=== PATIENT | male | born 1955 | race Caucasian/White ===

== ENCOUNTER → 2023-06-14 11:09 | Outpatient (REF) | payer BC, SELFPAY | LOC: HWRAD 11:09 | PROVIDERS: ATTENDING PHYSICIAN Internal Medicine | DX: M79.89 Other specified soft tissue disorders (principal) | CPT/HCPCS: 73140 ==

== ENCOUNTER → 2024-07-29 10:48 | Outpatient (REF) | payer BC, SELFPAY | LOC: HWRAD 10:48 | PROVIDERS: ATTENDING PHYSICIAN Student in an Organized Health Care Education/Training Program; FAMILY PHYSICIAN Family Medicine | DX: M25.512 Pain in left shoulder (principal) | CPT/HCPCS: 72125 ==

== ENCOUNTER → 2024-08-04 08:42 | Outpatient (REF) | payer BC, SELFPAY | LOC: RAD 08:42 | PROVIDERS: ATTENDING PHYSICIAN Family Medicine | DX: I73.9 Peripheral vascular disease, unspecified (principal) | CPT/HCPCS: 93922; 93925 ==

== ENCOUNTER 2024-08-28 11:54 | Inpatient (IN) | payer BC, SELFPAY ==
[2024-08-28] VITALS (9 sets, daily range): BP systolic 113–158; BP diastolic 72–110; BMI 27.0
[2024-08-28] MEDS: DUONEB 3 ML INH ×4 (08:22→19:20)
--- NOTE | 2024-08-28 08:23 | ED.GENMED ---
History of Present Illness
General
Chief Complaint: Breathing Problem
Source: patient
Exam Limitations: none
Time Seen by Provider: 08/28/24 08:11
Nursing documentation reviewed up to this point in time: agreed with
History of Present Illness
History of Present Illness:
69-year-old male with a history of hypertension, hyperlipidemia, PAD, COPD former smoker presents for about 1 week of increased cough, decreased appetite and wheezing with SOB
he has an albuterol inhaler and treligy and has been using them but not getting relief
he has a neb machine and started using that, 3 times thepast 24 hours
he was becoming increasingly SOB so he decided to come in
not aware of any fever
no chest pain, abdomial pain, vomiting, dirarhea, sore throat congestion.
he has had trouble laying flat
he has some swellin gin his legs that is new
Past History
Past History
ED Past Medical History: HTN and Other (Aneurysm)
ED Past Surgical History: None
Social History
Tobacco: Non-smoker
Alcohol: None
Family History
Family History: Other (Noncontributory)
Review of Systems
Review of Systems
Allergies reviewed?: Yes
All Other Systems: Not applicable
Phy Exam
Physical Exam
Physical Exam:
GENERAL: Alert , tachypneic
EYE: pupils equal and reactive
NECK: Supple
ENT: o/p clr, mmm.
CARDIAC: Tachycardic, no murmur
LUNGS: Frequent cough, inspiratory and expiratory wheezing, rhonchi throughout,
ABDOMEN: Soft, without focal tenderness, no r/g, no cvat, normal bowel sounds
NEUROLOGICAL: Alert and oriented, no focal neuro deficits
SKIN: Warm and dry, skin intact.
MUSCULOSKELETAL: Mild nonpitting symmetric lower extremity edema in the pretibial region edema, well perfused. neg fidelia's sign
PSYCH: Normal and appropriate interaction.
Scores
Heart Failure Risk
Heart Failure Risk Score: Not Applicable
Course
Orders/Labs/Results
Orders:
Orders
08/28/24 Breakfast
Regular
At Your Request: Limited Participation
08/28/24 08:16
Electrocardiogram (*1) Urgent
Reason for Study: Shortness of Breath
EKG- Treatment ONCE
Portable Chest Xray [CR Chest Portable - 1 View] Urgent
Comment:
Reason For Exam: sob
Reason Study Needs to be Portable: Patient Unstable
08/28/24 08:19
Ipratropium/Albuterol Sulfate [Duoneb] 6 ml .ROUTE .STK-MED ONE
08/28/24 08:21
Ipratropium/Albuterol Sulfate [Duoneb] 3 ml INH R NOW STA
08/28/24 08:22
Complete Blood Count/With Diff Urgent
Comprehensive Metabolic Panel Urgent
NT-proBNP Urgent
Troponin I Urgent
08/28/24 08:29
COVID-19 Antigen Urgent
Source: Nasal Swab
Influenza A+B Rapid Molecular Urgent
DIAMOND Source: Nasal Swab
Specimen Description:
08/28/24 08:38
Lactic Acid Urgent
08/28/24 08:46
Blood Culture Q30M
DIAMOND Source: Blood/Venous
Specimen Description:
Piperacillin/Tazo 4.5 Gram [Zosyn] 4.5 gram in 100 ml IV NOW
08/28/24 08:48
Dexamethasone Sod Phosphate [Decadron] 6 mg IV NOW STA
08/28/24 08:51
Dexamethasone Sod Phosphate [Decadron] 10 mg IV NOW STA
08/28/24 08:55
Blood Culture Q30M
DIAMOND Source: Blood/Venous
Specimen Description:
08/28/24 11:38
CT Chest PE Study Urgent
Comment:
Reason For Exam: tachy acute hypoxia
08/28/24 11:39
Admit/Transfer Patient As Directed
Co-Sign Provider:
Level of Care: Inpatient admission
Assign to:: IMU- Intermediate Care
Physician / Group: Jie Camp
Diagnosis: Multifocal Pneumonia
Reason for Hospitalization: Multifocal Pneumonia
Expected length of stay greater than two midnights?: Yes
ELOS- Estimated Length of Stay in days: 2
I certify the patient meets the requirements for IP care: Yes
Furosemide [Lasix] 40 mg IV ONCE ONE
08/28/24 11:40
PRN Pain Medication Management As Directed
May give lesser potent ordered pain med per pt: Yes
preference::
Protocol:: Medication orders for pain may be administered in a
manner that supports deferring to patient preference
when the pt is:
- Requesting an ordered lesser potent pain medication.
Least to most potent pain medications are defined
as: acetaminophen < NSAID < tramadol < opioids
(morphine, oxycodone, hydromorphone).
- Requesting a lesser dose of the same medication IF
ORDERED.
- Requesting a less intrusive route of administration
if both routes are prescribed by the provider (PO <
IV).
08/28/24 11:44
Code Status As Directed
Resuscitation Status: Full Code
08/28/24 13:01
Acetaminophen [Tylenol] 1,000 mg PO Q6HPRN PRN
Azithromycin 500 mg/250 ml [Zithromax Infusion] 500 mg in 250 ml IV NOW
Guaifenesin/Dextromethorphan [Robitussin Dm] 5 ml PO Q4HPRN PRN
Ipratropium/Albuterol Sulfate [Duoneb] 3 ml INH R Q4HPRN PRN
Ipratropium/Albuterol Sulfate [Duoneb] 3 ml INH R QID
08/28/24 13:01
Echo 2D MMode Color/Doppler Routine
Reason for Study: SOB, orthopnea, BNP elevation
Activity As Directed
Activity Level: With Assistance
Intake/ Output As Directed
Frequency: Per unit guidelines
Vital Signs As Directed
Frequency: Per unit guidelines
Weight As Directed
Frequency: Daily
Copd Education [RESP] Routine
DX Deep Vein Thrombosis Video Routine
08/28/24 14:00
CefTRIAXone [Rocephin] 1,000 mg IV Q24H
08/28/24 18:00
Dexamethasone Sod Phosphate [Decadron] 4 mg IV Q8H
Enoxaparin Sodium [Lovenox] 40 mg SC QPM
Methocarbamol 750 mg PO QID
08/28/24 20:00
Guaifenesin [Mucinex] 600 mg PO Q12
08/28/24 22:00
Atorvastatin [Lipitor] 10 mg PO HS
08/29/24 04:04
Basic Metabolic Panel IN AM
Complete Blood Count/With Diff IN AM
08/29/24 08:00
Aspirin Low Dose EC [Aspir Low (Enteric Coated)] 81 mg PO DAILY
Cholecalciferol (Vitamin D3) [VITAMIN D3 (cholecalciferol)] 25 mcg PO DAILY
Lisinopril [Zestril] 20 mg PO DAILY
08/30/24 06:00
Complete Blood Count/With Diff IN AM
08/31/24 06:00
Complete Blood Count/With Diff IN AM
09/01/24 06:00
Complete Blood Count/With Diff IN AM
09/02/24 06:00
Complete Blood Count/With Diff IN AM
09/03/24 06:00
Complete Blood Count/With Diff IN AM
09/04/24 06:00
Complete Blood Count/With Diff IN AM
Abnormal Lab Results
08/28/24
08:22
WBC 23.0 H 10^3/uL
(4.8-10.8)
RBC 4.36 L 10^6/uL
(4.70-6.10)
Hct 38.8 L %
(39.0-52.0)
Plt Count 495 H 10^3/uL
(130-400)
Abs Immat Gran (auto) 0.2 H 10^3/uL
(0-0.05)
Absolute Neuts (auto) 19.9 H 10^3/uL
(1.4-6.5)
Absolute Monos (auto) 1.6 H 10^3/uL
(0.1-0.6)
Immature Gran % 1.0 H %
(0-0.5)
Neutrophils % 86.5 H %
(42.2-75.2)
Lymphocytes % 5.3 L %
(20.5-51.1)
Glucose 120 H mg/dl
(70-99)
08/28/24 08:22
08/28/24 08:22
Vital Signs
Initial and Last Documented VS:
Initial Vital Signs
Temp Pulse Resp BP Pulse Ox
36.8 C 118 22 158/110 86
08/28/24 08:07 08/28/24 08:07 08/28/24 08:07 08/28/24 08:07 08/28/24 08:07
Last Documented Vital Signs
Temp Pulse Resp BP Pulse Ox
36.6 C 83 23 127/85 99
08/29/24 08:08 08/29/24 09:48 08/29/24 07:24 08/29/24 09:48 08/29/24 07:24
MDM/Problems Addressed
Differential Diagnosis Includes:
COPD, pneumonia, pulmonary edema
MDM/Problems Addressed:
69-year-old male former smoker, history of COPD, hypertension and hyperlipidemia presents for 1 week of increased shortness of breath with cough, decreased appetite, no known fever. Patient does have a little bit of swelling in his legs which seems
new to him. He has not had any chest discomfort but feels extremely short of breath with any slight activity just from getting from his bed to the bathroom. He has not been able to lay flat. He has been trying nebulizer treatments with minimal
relief. On arrival he was hypoxic to 86% on room air, wheezing and coughing. Patient can speak in nearly full sentences but is tachypneic, wheezing and has rhonchi throughout. The edema in his legs is minimal and nonpitting
His chest x-ray independently reviewed by me favors multifocal pneumonia versus pulmonary edema. I spoke with the radiologist who agreed. Patient has a leukocytosis of 23,000 with a left shift, borderline temperature of 99.5. Lactate and cultures
were sent. At this point after 2 DuoNebs he is still only saturating 91% on 5 L and tachypneic but he is moving better air and less wheezy.
He may require IMU
Will cover him with Zosyn and give a smaller dose of steroids for his COPD/wheezing
*Critical Care Note
Total Time (30-74mins, 75-104mins- exclusive of procedures): Not Applicable
ED Attending Note
-
Portions of this chart may have been created with voice recognition software.� Occasional wrong word or��sound alike� substitutions may have occurred due to the inherent limitations of voice recognition software.
Discharge Plan
Departure
Patient Disposition: Admit
Date of Disposition: 08/28/24
Time of Disposition: 08:51
Admit to: IMU
Presentation/result/management discussed w/ accepting MD/DO: Hospitalist
Condition: Fair
Covid-19: Negative COVID-19
Discharge Problem:
Multifocal pneumonia, Hypoxia
Interventions
Interventions:
*Risk Screen - Suicide Last Done: 08/28/24 08:07
*General Assessment Last Done: 08/28/24 08:28
*Neglect/Abuse Screening Last Done: 08/28/24 08:07
*ED- Fall Risk Assessment Last Done: 08/28/24 08:28
*ED COVID-19 Vaccine History Last Done: 08/28/24 08:28
*Nursing Disposition Last Done: 08/28/24 13:12
ED- Cardiac Assessment Last Done: 08/28/24 08:25
ED- Pulmonary Assessment Last Done: 08/28/24 12:18
Discharge Date and Time
Discharge Date/Time: 08/28/24 13:13
[2024-08-28 08:29] LABS: % Basophils 0.4 % (0-2); % Eosinophils 0.1 % (0-6); % Lymphocytes 5.3 % (20.5-51.1); % Monocytes 6.7 % (1.7-9.3); % Neutrophils 86.5 % (42.2-75.2); Absolute Basophils 0.1 10^3/uL (0-0.2); Absolute Immature Granulocytes 0.2 10^3/uL (0-0.05); Absolute Lymphocytes 1.2 10^3/uL (1.2-3.4); Absolute Monocytes 1.6 10^3/uL (0.1-0.6); Absolute Neutrophils 19.9 10^3/uL (1.4-6.5); Hematocrit 38.8 % (39.0-52.0); Hemoglobin 13.1 g/dL (13.0-18.0); Mean Corp Hgb Conc. 33.8 g/dL (33.0-37.0); Mean Platelet Volume 8.8 fL (7.4-10.4); Nucleated Red Blood Cells % 0 % (-); Platelet Count 495 10^3/uL (130-400); Red Blood Cell Count 4.36 10^6/uL (4.70-6.10)
[2024-08-28 08:49] LABS: ALT (SGPT) 46 U/L (0-50); AST (SGOT) 41 U/L (17-59); Albumin 3.6 g/dl (3.5-5.0); Alkaline Phosphatase 119 U/L (38-126); Blood Urea Nitrogen 20 mg/dl (9-20); Calcium 9.2 mg/dl (8.4-10.2); Carbon Dioxide 28 mmol/L (22-30); Chloride 101 mmol/L (98-107); Glucose 120 mg/dl (70-99); Potassium 4.7 mmol/L (3.5-5.1); Sodium 139 mmol/L (135-145); Total Bilirubin 0.8 mg/dl (0.2-1.3); Total Protein 7.6 g/dl (6.3-8.2); eGFR > 60.00
--- NOTE | 2024-08-28 08:50 | EDRN ---
Report received at bedside, patient is very short of breath, informed SARAH Webber taking care of patient that patients o2 is turned up to 6L NC and only O2 sats 87% and is very tachypneic, tiger texted respiratory to place patient on high flow
[2024-08-28] MEDS: ZOSYN 100 IV (08:57)
[2024-08-28 08:58] LABS: NT-proBNP 1940 pg/ml; Troponin I 0.029 ng/ml
[2024-08-28] MEDS: DECADRON 10 MG IV (08:58)
--- NOTE | 2024-08-28 09:10 | HPS.HSE ---
Family Physician
-
Family Physician: India Magallanes
Chief Complaint
-
shortness of breath
History of Present Illness
69M HTN, HLD, PAD, COPD former smoker p/w 1 week of increased cough, decreased appetite, wheezing, SOB, exertional dyspnea, orthopnea and leg swelling. Denies fever chills calf tenderness. Hypoxic to 86% on room air during ED evaluation. Patient
required High Flow to maintain adequate saturation 90s. Denied chest pain fever chills nausea vomiting diarrhea constipation. Endorses having a roommate who smokes. AOx3 conversant coherent. Patient afebrile but sinus tachy with wbc 23. No
significant Lactic acidosis or hypotension. CXR suggestive multifocal pneumonia. BNP 1940, crackles auscultated on RLL lung field. Denies weight gain.
Medical History
Past Medical History
Past Medical History: Reports Other (as above)
Past Surgical History: Reports Other (as above)
Social History
Tobacco: Former Smoker
Alcohol: None
Drug: None
Personal: Single
Living: With Roomate
Family History
Family History: Not pertinent (reviewed)
Allergies / Home Medications
Allergies reflects when Allergies were last updated in [employer].
Home Medications with original date entered in [employer]
Allergy/Medication List:
Allergies
Allergy/AdvReac Type Severity Reaction Status Date / Time
No Known Allergies Allergy Verified 08/28/24 08:09
Home Medications
atorvastatin 10 mg tablet 10 mg PO HS High cholesterol 08/28/20
carisoprodol 350 mg tablet 350 mg PO TID Muscle spasms 08/28/20
lisinopril 20 mg tablet 20 mg PO DAILY Blood pressure 08/28/20
acetaminophen 650 mg tablet,extended release (Tylenol Arthritis Pain) 1,300 mg PO [id number] PRN mild pain 08/28/24
albuterol 90 mcg-budesonide 80 mcg/actuation HFA aerosol inhaler (Airsupra) 2 inh inhalation R Q6HPRN PRN sob 08/28/24
aspirin 81 mg tablet,delayed release 81 mg PO DAILY 08/28/24
cholecalciferol (vitamin D3) 25 mcg (1,000 unit) tablet (Vitamin D3) 25 mcg PO DAILY 08/28/24
tiotropium bromide 2.5 mcg/actuation mist for inhalation (Spiriva Respimat) 2 inh inhalation R BID 08/28/24
Review of Systems
-
A 12 point ROS was completed and negative except as noted: Yes
Constitutional: Reports Other (as below)
Physical Exam
Vital Signs
Vital Signs
Temp Pulse Resp BP Pulse Ox
99.5 F 114 31 158/110 91
08/28/24 08:15 08/28/24 08:15 08/28/24 08:15 08/28/24 08:07 08/28/24 08:40
Physical Exam
General: Other (as below)
Laboratory Results
-
08/28/24 08:22
08/28/24 08:22
Laboratory Results
Total Bilirubin 0.8 mg/dl (0.2-1.3) 08/28/24 08:22
AST 41 U/L (17-59) 08/28/24 08:22
ALT 46 U/L (0-50) 08/28/24 08:22
Alkaline Phosphatase 119 U/L (38-126) 08/28/24 08:22
Troponin I 0.029 ng/ml 08/28/24 08:22
Impression/Plan
-
ROS
General: Denies fever chills night sweats unexpected weight loss reports appetite loss
Neuro: Denies seizure shaking loss of consciousness dizziness vertigo
Psych: denies depression hallucinations confusion manic episodes
Endocrine: Denies polyuria polydipsia polyphagia heat/cold intolerance
HEENT: Denies blindness visual disturbances epistaxis
Pulmonary: Reports productive cough exertional dyspnea orthopnea denies hemoptysis
Cardiovascular: denies chest pain palpitations reports leg swelling leg swelling
Hematology: denies signs symptoms of anemia easy bruising/bleeding
Gastrointestinal: denies nausea vomiting diarrhea constipation hematemesis hematochezia melena
Genito-Urinary: denies retention incontinence dysuria
Musculoskeletal: denies joint pain weakness
Dermatology: denies rash laceration bruising
Physical Exam
General: No pallor, cyanosis, or jaundice.
HEENT: Throat clear. PERRLA Normocephalic atraumatic
NECK: Supple. No carotid Bruits
RESPIRATORY: Crackles right lower lung field on high flow nonlabored respiration
CVS: S1, S2 sinus tachycardia. No murmur, rub or gallop.
ABDOMEN: Soft, non-tender. No distension. BS+/normal.
EXTREMITIES: No peripheral cyanosis, +1 edema lower extremities bilateral. No significant Calf tenderness
ADJUNCT FACULTY: AOx3 conversant coherent
IMPRESSION:
69M HTN, HLD, PAD, COPD former smoker p/w 1 week of increased cough, decreased appetite, wheezing, SOB, exertional dyspnea, orthopnea and leg swelling. Denies fever chills calf tenderness. Hypoxic to 86% on room air during ED evaluation. Patient
required High Flow to maintain adequate saturation 90s. Denied chest pain fever chills nausea vomiting diarrhea constipation. Endorses having a roommate who smokes. AOx3 conversant coherent. Patient afebrile but sinus tachy with wbc 23. No
significant Lactic acidosis or hypotension. CXR suggestive multifocal pneumonia. BNP 1940, crackles auscultated on RLL lung field. Denies weight gain
PLAN:
#Sepsis secondary to multifocal pneumonia
#Acute hypoxic respiratory failure
#Possible heart failure
#COPD exacerbation
IMU admit
Pulm eval
Received empiric and Zosyn in ED, will continue with antibiotics ceftriaxone azithromycin
Follow blood cultures, check sputum culture
trend wbc
High flow as necessary to maintain saturation 92%, wean as tolerated
IV decadron 4mg Q8H
Duoneb R QID and prn
mucinex, prn robitussin DM
incentive spirometer, acapella
Check CT chest PE study
Check ECHO
once IV Lasix 40 mg
daily weight I/O
#HTN
cont home lisinopril with holding parameters
#HLD
cont home statin
#PAD
pain control
cont patient's own med carisoprodol
dvt ppx Lovenox
gi ppx protonix
Full Code
I spent a total of 80 minutes with the patient or on the floor. More than 50% of this time involved counseling and coordination of care.
[2024-08-28 09:11] LABS: Lactic Acid 1.4 mmol/L (0.7-2.0)
[2024-08-28 09:25] LABS: COVID-19 Antigen Negative (Negative)
--- NOTE | 2024-08-28 09:29 | RESPNOTE ---
placed on high flow 100% @50LPM. SpO2 improved from 87-88% to 93-94%. mild to moderate dyspnea with exertion. BS diminished throughout, per RN just received back -to-back neb treatments. patient tolerating HFNC, will wean O2 as able.
--- NOTE | 2024-08-28 10:18 | EDRN ---
Patient is sleeping at this time, VSS will continue to monitor, waiting on admission at this time.
--- NOTE | 2024-08-28 11:08 | EDRN ---
Patient needing the bathroom, gave patient urinal so he can stay on his o2, no further needs at this time, call rothman in reach
--- NOTE | 2024-08-28 11:30 | EDRN ---
Hospitalist at bedside working on admission orders
[2024-08-28] MEDS: LASIX 40 MG IV (12:37)
[2024-08-28] MEDS: STERILE WATER FOR INJECTION 10 ML IV (14:27)
[2024-08-28] MEDS: ROCEPHIN 1000 MG IV (14:27)
[2024-08-28] MEDS: ZITHROMAX INFUSION 250 IV (14:27)
--- NOTE | 2024-08-28 16:17 | CON.PUL ---
Addendum entered and electronically signed by Jason Meeks MD 08/28/24 19:08:
Was notified by respiratory that patient desaturates to 85% while sleeping, mouth breathing with high flow
Titrate oxygen up as able
May require Ventimask depending on clinical course but as long as arousable and without complaints, okay to tolerate saturation down to 85% while sleeping
Obtain ABG in AM on high flow
Original Note:
Consultation
Consultation Request
Date/Time Consultation Requested: 08/28
Date/Time Consultation Performed: 08/28
Reason for Consultation: Hypoxia, pneumonia
Medical History
-
History of Present Illness:
History obtained from the chart and from the patient. Patient is a 69-year-old male with history of COPD, pneumonia 10+ years ago, 120+ pack-year history of smoking quit 2006, presents with 1 week history of increased shortness of breath, chest
congestion, cough. He had seen a sofa inspector 10+ years ago and was told he had COPD. Despite given a diagnosis of 'severe' COPD, he is only on Spiriva and Airsupra as an outpatient. Upon arrival to [facility], afebrile, pulse 118,
breathing at 22, blood pressure 158/110, 86%. Per ED records, chest exam with significant wheezing and rhonchi. Patient was given nebulized therapy, Zosyn, steroids. Cultures obtained. White count noted to be 23. Chest x-ray suggested
pneumonia. CT chest was obtained. We are asked to comment on pulmonary process
Patient states he was getting short of breath just walking to the bathroom few days prior to admission. He denies any falls, syncope, chest pain, chest tightness, PND, orthopnea, lower extremity swelling. He denies any oxygen requirement in the
past.
.
PMH: History of COPD, history of pneumonia 2014, hypertension. History of fall
Past Medical History
Past Medical History: None (See above)
Past Surgical History: None (See above)
Social History
Tobacco: Former Smoker (125+ pack-year history of smoking quit 2006, was smoking 4 packs a day for 25 years at 1 point)
Alcohol: Occasional
Drug: None
Personal: Single
Living: With Roomate (Lives with a roommate which she helps as a caregiver)
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
Family History
Family History: Other (1 sister from leukemia, brother from COPD at age 58. He was a smoker. Both parents in an elderly age. No children)
Allergies / Home Medications
Allergies
Allergy/AdvReac Type Severity Reaction Status Date / Time
No Known Allergies Allergy Verified 08/28/24 08:09
Home Medications
�Medication �Instructions �Recorded �Confirmed �Last Taken �Type
atorvastatin 10 mg tablet 10 mg PO HS High cholesterol 08/28/20 08/28/24 08/27/24 History
carisoprodol 350 mg tablet 350 mg PO TID Muscle spasms 08/28/20 08/28/24 08/27/24 History
lisinopril 20 mg tablet 20 mg PO DAILY Blood pressure 08/28/20 08/28/24 08/27/24 History
acetaminophen 650 mg 1,300 mg PO [id number] PRN mild pain 08/28/24 08/28/24 08/28/24 History
tablet,extended release (Tylenol
Arthritis Pain)
albuterol 90 mcg-budesonide 80 2 inh inhalation R Q6HPRN PRN sob 08/28/24 08/28/24 08/28/24 History
mcg/actuation HFA aerosol inhaler
(Airsupra)
aspirin 81 mg tablet,delayed 81 mg PO DAILY 08/28/24 08/28/24 08/27/24 History
release
cholecalciferol (vitamin D3) 25 25 mcg PO DAILY 08/28/24 08/28/24 08/27/24 History
mcg (1,000 unit) tablet (Vitamin
D3)
tiotropium bromide 2.5 2 inh inhalation R BID 08/28/24 08/28/24 08/28/24 History
mcg/actuation mist for inhalation
(Spiriva Respimat)
Review of Systems
Vitals / Labs / Diagnostic Testing
Vital Signs
Temp Pulse Resp BP Pulse Ox
98.4 F 94 44 148/87 95
08/28/24 15:52 08/28/24 15:27 08/28/24 15:27 08/28/24 12:37 08/28/24 15:27
Lab Data
08/28/24 08:22
08/28/24 08:22
Microbiology
08/28/24 08:29 Nasal Swab Influenza Types A & B (ALKA) - Final
Negative for Influenza A & B, NAAT
Negative results must be combined with clinical observations
and patient history.
Nucleic Acid Amplification test (NAAT)performed on the
[employer] platform.
Diagnostic Testing:
Physical Exam
-
HEENT: Normocephalic and Anicteric
Cardiovascular: S1/S2, Regular Rhythm, Murmur (n) and Rub (n)
Respiratory: Wheeze (Scattered), Rales (Bibasilar), Rhonchi (Few) and Non-Labored Respirations
GI: Soft, Non Distended and Non Tender
Neurology: Awake, Alert, Oriented and No Motor Deficits (Able to sit up without assistance)
Skin: Good Color
General: Comfortable
Assessment
-
69-year-old male with history of COPD, pneumonia, 120+ pack-year history of smoking quit presents with 1 week of increased shortness of breath, chest congestion found to be hypoxic requiring high flow oxygen. Imaging suggest extensive bilateral
pneumonia. We are asked to comment on pulmonary process
Acute hypoxic respiratory insufficiency
Requiring high flow oxygen
Bilateral pneumonia
Bronchiolitis, basilar predominant
Chest congestion, cough, shortness of breath x 1 week
Leukocytosis
Conditions present prior to admission
Hypertension/hyperlipidemia
125+ pack-year history of smoking, quit 2018
Family history of emphysema, son at age 58
Plan/recommendations
At this time, patient requiring significant oxygen although appears to be comfortable, nontoxic in appearance
Chest x-ray and CT chest suggestive bilateral bronchiolitis
Patient denies significant symptoms prior to 1 week ago although describes chronic shortness of breath at baseline
Moving forward
Await culture data
Influenza negative
Check urine Legionella, streptococcal antigen
Empiric antibiotics for now, ceftriaxone/azithromycin
Will continue with IV steroids, ramp-up airway clearance with DuoNebs, add budesonide
At some point, patient will need to be on a better inhaler regimen
He has been told he has 'severe' COPD but is only on Airsupra and Spiriva which is suboptimal maintenance therapy
He would benefit from eventual full PFT and pulmonary follow-up as outpatient
Unclear whether he has a baseline interstitial process
DVT prophylaxis: Enoxaparin
GI prophylaxis: Will add Pepcid
Will follow
[2024-08-28] MEDS: LOVENOX 40 MG SC (18:23)
[2024-08-28] MEDS: DECADRON 4 MG IV (18:24)
[2024-08-28] MEDS: METHOCARBAMOL 750 MG PO ×2 (19:53→21:08)
[2024-08-28] MEDS: MUCINEX 600 MG PO (19:53)
[2024-08-28] MEDS: ROBITUSSIN DM 5 ML PO (21:08)
[2024-08-28] MEDS: LIPITOR 10 MG PO (21:08)
--- NOTE | 2024-08-28 22:38 | PTCARENOTE ---
Pt continues on HFNC, maintaining SaO2 > 92%. Denies SOB at this time. PRN cough medicine given per MAY. Assessment as documented. SR on CM. Call rothman within reach. Pt states that he has a rescue inhaler in his pocket, as well as his usual scheduled
medications. Instructed by this RN not to take outside medications and ring for staff if he feels SOB/other respiratory symptoms. No medications sent to pharmacy, as medications are single doses loose in pt's pocket. Care ongoing.
[2024-08-29] VITALS (24 sets, daily range): BP systolic 97–163; BP diastolic 43–99; BMI 26.7; BMI 26.9
[2024-08-29] MEDS: DECADRON 4 MG IV ×3 (03:35→18:20)
[2024-08-29 04:13] LABS: B.E. 8.9 mmol/L; HCO3 36.7 mmol/L (21-28); O2 Saturation % 93.8 % (94-98); PCO2 65 mmHg (35-48); PO2 71 mmHg (83-108); pH 7.36 (7.35-7.45)
[2024-08-29 04:16] LABS: O2 Therapy HIGH FLOW
[2024-08-29 04:25] LABS: % Basophils 0.3 % (0-2); % Eosinophils 0.1 % (0-6); % Immature Granulocytes 1.1 % (0-0.5); % Lymphocytes 9.5 % (20.5-51.1); % Monocytes 5.7 % (1.7-9.3); % Neutrophils 83.3 % (42.2-75.2); Absolute Basophils 0.1 10^3/uL (0-0.2); Absolute Immature Granulocytes 0.2 10^3/uL (0-0.05); Absolute Lymphocytes 1.5 10^3/uL (1.2-3.4); Absolute Monocytes 0.9 10^3/uL (0.1-0.6); Absolute Neutrophils 13.4 10^3/uL (1.4-6.5); Hematocrit 41.8 % (39.0-52.0); Hemoglobin 13.2 g/dL (13.0-18.0); Mean Corp Hgb Conc. 31.6 g/dL (33.0-37.0); Mean Corpuscular Hgb 29.5 pg (27.0-31.0); Mean Corpuscular Volume 93.3 fL (80.0-94.0); Nucleated Red Blood Cells % 0 % (-); Platelet Count 566 10^3/uL (130-400); Red Blood Cell Count 4.48 10^6/uL (4.70-6.10); Red Cell Dist. Width 14.2 % (11.5-14.5); White Blood Cell Count 16.1 10^3/uL (4.8-10.8)
[2024-08-29] MEDS: NSS (PRESERVATIVE FREE) 0.25 ML IV (04:27)
[2024-08-29] MEDS: ATIVAN 0.5 MG IV (04:27)
[2024-08-29] MEDS: DUONEB 3 ML INH ×5 (04:28→18:41)
[2024-08-29 04:49] LABS: Blood Urea Nitrogen 31 mg/dl (9-20); Calcium 9.5 mg/dl (8.4-10.2); Carbon Dioxide 33 mmol/L (22-30); Chloride 102 mmol/L (98-107); Estimated Creatinine Clearance 83 ml/min; Glucose 124 mg/dl (70-99); Potassium 5.4 mmol/L (3.5-5.1); Sodium 142 mmol/L (135-145); eGFR > 60.00
[2024-08-29] MEDS: LOKELMA 5 GRAM PO (05:19)
--- NOTE | 2024-08-29 08:47 | W.PN.HOSP.TC ---
Today's Communication/Plan
-
see a/p
Assessment / Plan
Assessment / Plan
Physical Exam
General: No pallor, cyanosis, or jaundice.
HEENT: Throat clear. PERRLA Normocephalic atraumatic
NECK: Supple. No carotid Bruits
RESPIRATORY: Crackles right lower lung field on high flow nonlabored respiration
CVS: S1, S2 sinus tachycardia. No murmur, rub or gallop.
ABDOMEN: Soft, non-tender. No distension. BS+/normal.
EXTREMITIES: No peripheral cyanosis, no edema lower ext's. No significant Calf tenderness
ALL SOURCE INTELLIGENCE: AOx3 conversant coherent
IMPRESSION:
69M HTN, HLD, PAD, COPD former smoker p/w 1 week of increased cough, decreased appetite, wheezing, SOB, exertional dyspnea, orthopnea and leg swelling. Denies fever chills calf tenderness. Hypoxic to 86% on room air during ED evaluation. Patient
required High Flow to maintain adequate saturation 90s. Denied chest pain fever chills nausea vomiting diarrhea constipation. Endorses having a roommate who smokes. AOx3 conversant coherent. Patient afebrile but sinus tachy with wbc 23. No
significant Lactic acidosis or hypotension. CXR suggestive multifocal pneumonia. BNP 1940, crackles auscultated on RLL lung field. Denies weight gain
PLAN:
#Sepsis secondary to multifocal pneumonia
#Acute hypoxic respiratory failure
#Possible heart failure (less likely)
#COPD exacerbation
#Possible Sarcoidosis
IMU admit transferred to ICU closer monitoring d/t worsening oxygen requirement max high flow w NRB
Pulm eval appreciated
Received empiric and Zosyn in ED, abx continued w ceftriaxone azithromycin
Follow blood cultures, check sputum culture
trend wbc
ID eval appreciated
High flow as necessary to maintain saturation 92%, wean as tolerated
IV decadron 4mg Q8H
Duoneb R QID and prn
mucinex, prn robitussin
incentive spirometer, acapella
CT chest noted no PE, diffuse pna vs sarcoidosis vs lymphoma (close follow up CT recommended), T8 compression fx also noted age indeterminate
ECHO appreciated EF 60-65% no significant valve abn's
daily weight I/O
#HTN
cont home lisinopril with holding parameters
#HLD
cont home statin
#PAD
pain control
home scheduled muscle relaxant discontinued to minimize sedating medications as possible
dvt ppx Lovenox
gi ppx protonix
Full Code
Total Critical Care Time__50___ minutes. I was immediately available to the patient and staff. I personally examined, reviewed labs, diagnostic images/reports, interpretations, treatment plans, discussed patient care with other providers and
patient, entered orders as appropriate and documented the medical record.
Anticipated Discharge: > 48 hours
Subjective/Interval History
-
Date of Service: August 29, 2024
Seen and examined at bedside in no acute distress sitting up comfortably in bed. Max on hi flow requiring NRB to maintain saturation. Otherwise seems comfortable AOx3 conversant coherent.
Objective Data
-
Labs:
Laboratory Results
08/29/24 08/29/24
03:56 04:04
WBC 16.1 H
Hgb 13.2
Hct 41.8
Plt Count 566 H
HCO3 36.7 H
Sodium 142
Potassium 5.4 H
Chloride 102
Carbon Dioxide 33 H
BUN 31 H
Creatinine 1.0
Glucose 124 H
Calcium 9.5
Vital Signs:
Vital Signs
Temp Pulse Resp BP Pulse Ox
97.9 F 87 23 149/95 99
08/29/24 08:08 08/29/24 07:24 08/29/24 07:24 08/29/24 06:00 08/29/24 07:24
I&O
08/28/24 08/29/24 08/30/24
06:59 06:59 06:59
Intake Total 250 / 250
Output Total 2250 / 2250
Balance -1999 /
--- NOTE | 2024-08-29 08:59 | W.PN.PUL3 ---
Today's Communication / Plan
-
Continue antibiotics
Check streptococcal and Legionella antigen
Ramped up airway clearance
No change in steroids
DVT, GI prophylaxis
Avoid sedation
For transfer to ICU. Reviewed with infertility nurse and primary service
Assessment
-
69-year-old male with history of COPD, pneumonia, 120+ pack-year history of smoking quit presents with 1 week of increased shortness of breath, chest congestion found to be hypoxic requiring high flow oxygen. Imaging suggest extensive bilateral
pneumonia. We are asked to comment on pulmonary process
Acute hypoxic respiratory insufficiency, admitted 08/28
Requiring high flow oxygen
Worsening, now on nonrebreather/high flow
Bilateral pneumonia
Bronchiolitis, basilar predominant
Chest congestion, cough, shortness of breath x 1 week
Leukocytosis
Mild pulm hypertension, PA pressure 45
Normal biventricular function, per echo 08/28/2024
Conditions present prior to admission
Hypertension/hyperlipidemia
125+ pack-year history of smoking, quit 2017
Family history of emphysema, son at age 58
Plan/recommendations
At this time, patient requiring significant oxygen although appears to be comfortable, nontoxic in appearance
He is now on high flow and 100% nonrebreather, 97%
Chest x-ray and CT chest suggestive bilateral bronchiolitis
Patient denies significant symptoms prior to 1 week ago although describes chronic shortness of breath at baseline
Chest exam with decreased breath sounds, mild crackles at the base, no wheezing today. Appears improved
Chest x-ray today with persistent bilateral infiltrates, appears to be slightly improved per my review
ABG reviewed. Chronic compensated hypercapnia noted, significant hypoxia noted on high flow
Echocardiogram 08/28/2024 with normal biventricular function, mild pulmonary hypertension, PA pressure 45
Moving forward
Await culture data
Influenza negative
Check urine Legionella, streptococcal antigen
Empiric antibiotics for now, ceftriaxone/azithromycin
Will continue with IV steroids, ramp-up airway clearance with DuoNebs, add budesonide
Will check lower extremity Dopplers
Patient -2 L. Doubt component of heart failure at this time
Edema noted. Echo reviewed
Repeat EKG upon arrival to ICU
Despite increased oxygen requirement, patient appears to be comfortable, conversant, more awake today
Minimize sedation if possible, hold medications that may contribute to sedation. Reviewed with primary service
At some point, patient will need to be on a better inhaler regimen
He has been told he has 'severe' COPD but is only on Airsupra and Spiriva which is suboptimal maintenance therapy
He would benefit from eventual full PFT and pulmonary follow-up as outpatient
Unclear whether he has a baseline interstitial process
DVT prophylaxis: Enoxaparin
GI prophylaxis: Pepcid
Patient will be transferred to ICU for closer management given worsening oxygen requirement per primary service
Looks nontoxic at this time we will follow closely.
Discussed with patient remains high risk situation and if hypoxemia worsens, he may require intubation. He is aware
Remains full code
Reviewed with infertility nurse, primary service
TCCT 31 min
Subjective Data
-
Date of Service:
Date of Service: August 29, 2024
Subjective:
Patient had episodic desaturation through the right, requiring nonrebreather. Continues to have productive cough. This morning, desaturated in the 70s despite high flow oxygen, improved with nonrebreather on top of high flow. Patient denies chest
pain, nausea, abdominal pain. He thinks he is about the same as yesterday, no worse, no better. Denies hemoptysis. He is conversant
Objective Data
Data Reviewed
Vital Signs / I&O / Oxygen:
Vital Signs
Temp Pulse Resp BP Pulse Ox
97.9 F 87 23 149/95 99
08/29/24 08:08 08/29/24 07:24 08/29/24 07:24 08/29/24 06:00 08/29/24 07:24
Intake and Output
05/08/29/24 08/30/24
06:59 06:59 06:59
Intake Total 250 / 250
Output Total 2250 / 2250
Balance -1999 / -1999
SaO2 99
Nasal Cannula flow liters per 50
minute
Physical Exam
General: Comfortable
HEENT: Normocephalic and Anicteric
Cardiovascular: S1-S2, Regular Rhythm, Murmur (n), Rub (n), Peripheral Edema (tr L>R) and Calf Tenderness (n)
Respiratory: Wheeze (n), Crackles (Few at base), Rhonchi, Non-Labored Respirations, Stridor (n) and Other (Decreased)
GI: Soft, Non Distended and Non Tender
Neurology: Awake, Alert and No Motor Deficits (Able to sit up without assistance)
Skin: Good Color (n), Cyanosis (n) and Jaundice (n)
Labs/Micro/Reports
Lab Data
08/29/24 04:04
08/29/24 04:04
Laboratory Results
08/29/24
03:56
pH 7.36
pCO2 65 H
pO2 71 L
HCO3 36.7 H
O2 Delivery Level High flow
Microbiology
08/28/24 08:46 Blood/Venous Blood Culture - Preliminary
No Growth in 24 hours- Final report to follow
08/28/24 13:27 Sputum Gram Stain - Preliminary
08/28/24 08:29 Nasal Swab Influenza Types A & B (ALKA) - Final
Negative for Influenza A & B, NAAT
Negative results must be combined with clinical observations
and patient history.
Nucleic Acid Amplification test (NAAT)performed on the
[email or web address] platform.
--- NOTE | 2024-08-29 09:06 | W.PN.UPDATE ---
Update Note
Progress Note Update
alerted by nurse, patient requiring max high flow and NRB to maintain saturation.
Seen and examined at bedside, patient otherwise appears comfortable. Alert Conversant Coherent. Otherwise seems stable at this time but overall clinical progression concerning, possibly may requiring intubation down the line.
Transferring to ICU for closer monitoring.
Discussed with patient, RN, Take Away Attendant.
--- NOTE | 2024-08-29 09:11 | PTCARENOTE ---
Pt in respiratory distress with max HF setting 44L 100%. Added 15L NRB mask and pt recovered to 89-90%, appears more comfortable but unable to wean, unable to give PO meds. Dr. Camp and Dr. Garcia notified and at bedside, ICU orders in place.
Updated SKIRT PANEL ASSEMBLER and Nursing Sup
[2024-08-29] MEDS: VITAMIN D3 (cholecalciferol) 25 MCG PO (09:48)
[2024-08-29] MEDS: PEPCID 20 MG PO (09:48)
[2024-08-29] MEDS: MUCINEX 600 MG PO ×2 (09:48→20:08)
[2024-08-29] MEDS: ASPIR LOW (ENTERIC COATED) 81 MG PO (09:48)
[2024-08-29] MEDS: ZESTRIL 20 MG PO (09:48)
--- NOTE | 2024-08-29 10:50 | PTCARENOTE ---
Rec'd pt at 1010 via bed from IMU- Rec'd pt awake alert and oriented, very talkative and pleasant. Currently not winded with talking. Speech is clear. Denies dizziness or headache. Skins is pink wm and dry. Respirs- Rec'd pt on High Flow Cannula
50L/100% - sats initially were 89-90% with pulse ox on hand, however nailbeds tend to be sl dusky with refill >2 sec, changed over to earlobe and sats running more 94-95% (both sites with good pleth) Will leave on just the High Flow as tolerated. Pt
denies feeling short of breath. Respirs overall are shallow/tachypnic and does get sl WILSON. Breath sounds overall are decreased throughout. Coughing an intermittent moist prod cough for whitish secretions. Monitor SR. + pulses. L DP audible with the
doppler. L PT unable to get with the doppler. R PT and DP are palp. Both feet are warm. Tr ankle edema. Denies chest pain. VS as documented. Abd is soft with + BS. Pt ate his breakfast almost as soon as he got here and ate 100% of it as he stated he
was hungry. Denies nausea. Denies need to void currently but was adamant that if he needed a catheter he would have to 'be knocked out' as it would be difficult. Capped ints intact R AC and R wrist. Sites wnl. Repositioned. Plan of care reviewed
with pt. Call rothman in reach.
--- NOTE | 2024-08-29 11:06 | PTCARENOTE ---
US of legs being done. Remains on High FLow 50L/100% with sats of 96%. Pt talking without distress.
[2024-08-29 11:27] LABS: Phosphorus 6.6 mg/dl (2.5-4.5)
--- NOTE | 2024-08-29 11:37 | CON.ID ---
Consultation
-
Date/Time Consultation Requested: 08/29/2024 0921
Date/Time Consultation Performed: 08/29/2024 1130
Requesting Provider: Dr. Camp
Performing Provider: Dr. Rabago
Reason for Consultation: Pneumonia
Chief Complaint / Past History
History of Present Illness
Leo Garcia is a 69-year-old man being evaluated at the request of Dr. Camp in regards to pneumonia. History is obtained from chart review, along with patient interview.
The patient reports that approximately 1 month ago he began to have difficulty walking secondary to claudication type symptomatology. 2 weeks ago he saw his PCP and was diagnosed with PAD. His respiratory status started to decline approximately 5
days ago. He notes chronic shortness of breath, although there was a marked increase over the past 5 days. He reported mild cough, with white 'thick' sputum. He denies any fevers or chills. He denies any sick contacts. He denies any recent
travel. He has 1 dog, and lives with a roommate. 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
Since admission, he has been started on empiric antibiotics. Increasing O2 requirements noted today, and the patient has been placed on high flow O2 and moved to the intensive care unit.
Past History
Additional Past Medical History:
HTN
HLD
PAD
COPD
Allergy History:
No Known Allergies Allergy (Verified 08/28/24 08:09)
Medications Reviewed: Yes
Current Antibiotics:
Ceftriaxone
Azithromycin
Social History
Tobacco: Former Smoker
Alcohol: None
Drug: None
Personal: Single
Living: With Roomate
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
Family History
Family History: Not Pertinent
Review of Systems
Vital Signs
Temp Pulse Resp BP Pulse Ox
98.4 F 92 18 104/77 94
08/29/24 11:13 08/29/24 11:00 08/29/24 11:00 08/29/24 10:26 08/29/24 11:00
Physical Exam
Physical Exam
Constitutional: No Acute Distress, Comfortable and Non-toxic
Head: Normocephalic and Other (High flow O2 in place.)
Eyes: Pupils Equal, Pupils Round, No Conjunctival Hemorrhage and Sclera Anicteric
Oral: No Thrush and No Ulcers
Cardiovascular: Regular Rate and S1/S2; Negative S3/S4
Pulmonary: Coarse and Non Labored; Negative Wheezes or Rales
Gastrointestinal: Soft, Non Tender, Non Distended and Normal Bowel Sounds
Extremities: Negative Edema, Cyanosis or Erythema
Skin: Warm and Dry; Negative Rash or Jaundice
Neurological: Awake, Alert and Oriented
Psychological: Calm
.
Lab / Diagnostic Study Results
08/29/24 04:04
08/29/24 04:04
Abs Immat Gran (auto) 0.2 10^3/uL (0-0.05) H 08/29/24 04:04
Absolute Neuts (auto) 13.4 10^3/uL (1.4-6.5) H 08/29/24 04:04
Absolute Lymphs (auto) 1.5 10^3/uL (1.2-3.4) 08/29/24 04:04
Absolute Monos (auto) 0.9 10^3/uL (0.1-0.6) H 08/29/24 04:04
Absolute Basos (auto) 0.1 10^3/uL (0-0.2) 08/29/24 04:04
Immature Gran % 1.1 % (0-0.5) H 08/29/24 04:04
Neutrophils % 83.3 % (42.2-75.2) H 08/29/24 04:04
Lymphocytes % 9.5 % (20.5-51.1) L 08/29/24 04:04
Monocytes % 5.7 % (1.7-9.3) 08/29/24 04:04
Eosinophils % 0.1 % (0-6) 08/29/24 04:04
Basophils % 0.3 % (0-2) 08/29/24 04:04
Lactic Acid 1.4 mmol/L (0.7-2.0) 08/28/24 08:38
Microbiology Results
Micro:
08/28/24 08:55 Blood Culture - Preliminary
Blood/Venous No Growth in 24 hours- Final report to follow
08/28/24 08:46 Blood Culture - Preliminary
Blood/Venous No Growth in 24 hours- Final report to follow
08/28/24 13:27 Respiratory Culture - Pending
Sputum Gram Stain - Preliminary
08/28/24 08:29 Influenza Types A & B (ALKA) - Final
Nasal Swab Negative for Influenza A & B, NAAT
Negative results must be combined with clinical observations
and patient history.
Nucleic Acid Amplification test (NAAT)performed on the
[employer] platform.
Imaging:
08/29/2024 CXR (portable): Severe bilateral endobronchial disease throughout the mid and lower lungs with small airspace consolidations in the right lower lobe and lingula unchanged from prior.
08/28/2024 CT chest (PE study): No pulmonary embolism noted. There is severe pulmonary parenchymal disease along with mediastinal and right hilar adenopathy raising suspicion of sarcoidosis versus pneumonia. Please see full dictation for additional
detail. Film personally viewed.
Assessment / Plan
B/L PNA
Hypoxemic respiratory insufficiency; now on high flow O2
Leukocytosis
Thrombocytosis
Exacerbation COPD
Hx HTN
HLD
PAD
Recommendations:
Respiratory culture and blood cultures currently pending.
Legionella and streptococcal urinary antigens pending.
Continue with ceftriaxone and Azithromycin. Azithromycin can be transitioned to the oral route.
Monitor white count and temperature curve.
Agree with IV steroids.
Will continue to follow clinically.
Further recommendations as additional data is returned.
[2024-08-29] MEDS: PULMICORT 0.5 MG INH ×2 (12:02→18:41)
[2024-08-29] MEDS: LASIX 40 MG IV (12:18)
[2024-08-29] MEDS: FLUSH (NSS) 1 FLUSH IV ×3 (12:19→18:20)
[2024-08-29] MEDS: ZITHROMAX 500 MG PO (12:42)
--- NOTE | 2024-08-29 13:00 | PTCARENOTE ---
Excellent appetite for lunch. Remains mostly on just HF O2 50L/100%- sats have mostly been anywhere from 92-96%. Did briefly dip to 86-88% when he got winded after turning and moving and briefly needed the 100% NRB mask but is currently back on just
the High FLow with sats of 94%. Pt is very talkative. Denies pain currently but states he takes SOMA for leg cramping when he sleeps and was hoping to get that reordered- will ask MD. Complete CHG bath given VS as documented. LASIX 40 mg IV given at
1220 per md order. Pt has not voided yet. Repositioned. Call rothman in reach.
[2024-08-29 13:16] LABS: INR 1.11; PT 14.6 Sec (11.4-14.6)
[2024-08-29] MEDS: ROCEPHIN 1000 MG IV (14:44)
[2024-08-29] MEDS: STERILE WATER FOR INJECTION 10 ML IV (14:44)
--- NOTE | 2024-08-29 14:55 | PTCARENOTE ---
Remains resting. No changes in assessment. Coughs a very moist cough sometimes productive for thick whitish secretions. Voided 300 mls post Lasix. Sats on the High Flow are anywhere from 86- 95%. Tends to desat when he needs to cough but once he
clear secretions sats usually tend to come up.
--- NOTE | 2024-08-29 17:20 | PTCARENOTE ---
Ready to eat dinner. Did have High FLow 50L/100% +partial rebreather on for about an hour from 3-4 as his sats were running 87-88%- With the added mask sats were up to almost 100%- currently he is back on just the High Flow 50L/100% and sats are
91-95%. At rest respirs are shallow but non-labored but does get sl WILSON. VS as documented. Voided 2 x yellow urine for a total of 500 mls post Lasix earlier. No other changes. Call rothman in reach.
[2024-08-29] MEDS: LOVENOX 40 MG SC (18:19)
[2024-08-29] MEDS: METHOCARBAMOL 750 MG PO ×2 (18:20→21:52)
--- NOTE | 2024-08-29 18:30 | PTCARENOTE ---
Good appetite for dinner. Remains on HF 50L/100% and sats currently are 94-98%. Of note pt tested positive for the Rhinovirus- placed on Droplet precautions. No other changes.
[2024-08-29] MEDS: LIPITOR 10 MG PO (21:52)
--- NOTE | 2024-08-29 22:39 | PTCARENOTE ---
Received patient in bed on high flow oxygen 50L & 100%. The patient is AAOx4 and able to make his needs known. Plan of care for the shift reviewed with the patient. Questions encouraged and answered. NSR on the monitor. SpO2 at 93%. Denies SOB
Productive cough. Patient suctions himself for whitish sputum IS max of 1000 ml. PIV. Pt voided yolanda urine. Lab sent. Pt brushed his teeth/dentures. Turns and repositions himself. Safety measures are in place. Full assessment as noted on the
worklist.
[2024-08-30] VITALS (22 sets, daily range): BP systolic 107–168; BP diastolic 66–130; BMI 26.8
--- NOTE | 2024-08-30 00:57 | PTCARENOTE ---
Patient reassessed. continues with occasional moist cough. VSS on the monitor. No changes from the previous assessment.
[2024-08-30] MEDS: DECADRON 4 MG IV ×3 (02:16→17:13)
[2024-08-30 04:29] LABS: % Basophils 0.3 % (0-2); % Immature Granulocytes 0.9 % (0-0.5); % Monocytes 4.4 % (1.7-9.3); % Neutrophils 87.4 % (42.2-75.2); Absolute Basophils 0.1 10^3/uL (0-0.2); Absolute Immature Granulocytes 0.2 10^3/uL (0-0.05); Absolute Lymphocytes 1.2 10^3/uL (1.2-3.4); Absolute Monocytes 0.8 10^3/uL (0.1-0.6); Hematocrit 36.2 % (39.0-52.0); Hemoglobin 11.7 g/dL (13.0-18.0); Mean Corp Hgb Conc. 32.3 g/dL (33.0-37.0); Mean Corpuscular Hgb 29.8 pg (27.0-31.0); Mean Corpuscular Volume 92.3 fL (80.0-94.0); Mean Platelet Volume 8.7 fL (7.4-10.4); Nucleated Red Blood Cells % 0 % (-); Platelet Count 504 10^3/uL (130-400); Red Blood Cell Count 3.92 10^6/uL (4.70-6.10); Red Cell Dist. Width 14.2 % (11.5-14.5); White Blood Cell Count 17.1 10^3/uL (4.8-10.8)
--- NOTE | 2024-08-30 04:58 | PTCARENOTE ---
Patient reassessed. AAOx3 and able to make his needs known. [facility] bath provided with the patient's assistance. WILSON, and orthopnea with care. SpO2 at 86% on high flow nasal cannula. Nonrebreather masked placed over high flow . SpO2 @ improved to 99%.
Completed care and labs drawn. Waited for the patient to settle and removed nonrebreather mask. SpO2 remained at 99%. Patient's watching television. HR 90.
[2024-08-30 05:02] LABS: Blood Urea Nitrogen 38 mg/dl (9-20); Calcium 8.8 mg/dl (8.4-10.2); Carbon Dioxide 32 mmol/L (22-30); Chloride 103 mmol/L (98-107); Estimated Creatinine Clearance 93 ml/min; Glucose 130 mg/dl (70-99); Magnesium 1.9 mg/dl (1.6-2.3); Phosphorus 4.5 mg/dl (2.5-4.5); Potassium 5.1 mmol/L (3.5-5.1); Sodium 139 mmol/L (135-145); eGFR > 60.00
--- NOTE | 2024-08-30 07:15 | W.PN.HOSP.TC ---
Today's Communication/Plan
-
abx as per ID
wean O2 as tolerated
cont steroids bronchodilators
pain control
Assessment / Plan
Assessment / Plan
Physical Exam
General: No pallor, cyanosis, or jaundice.
HEENT: Throat clear. PERRLA Normocephalic atraumatic
NECK: Supple. No carotid Bruits
RESPIRATORY: clear to auscultation b/l
CVS: S1, S2 sinus tachycardia. No murmur, rub or gallop.
ABDOMEN: Soft, non-tender. No distension. BS+/normal.
EXTREMITIES: No peripheral cyanosis, no edema lower ext's. No significant Calf tenderness
TOUR PRODUCTION SUPERVISOR: AOx3 conversant coherent
IMPRESSION:
69M HTN, HLD, PAD, COPD former smoker p/w 1 week of increased cough, decreased appetite, wheezing, SOB, exertional dyspnea, orthopnea and leg swelling. Denies fever chills calf tenderness. Hypoxic to 86% on room air during ED evaluation. Patient
required High Flow to maintain adequate saturation 90s. Denied chest pain fever chills nausea vomiting diarrhea constipation. Endorses having a roommate who smokes. AOx3 conversant coherent. Patient afebrile but sinus tachy with wbc 23. No
significant Lactic acidosis or hypotension. CXR suggestive multifocal pneumonia. BNP 1940, crackles auscultated on RLL lung field. Denies weight gain
PLAN:
#Sepsis secondary to multifocal pneumonia
#Viral pneumonia
#Acute hypoxic respiratory failure
#COPD exacerbation
#Possible Sarcoidosis
IMU admit transferred to ICU closer monitoring d/t worsening oxygen requirement max high flow w NRB
Pulm eval appreciated
Received empiric and Zosyn in ED, abx continued w ceftriaxone azithromycin
Follow blood cultures, check sputum culture
trend wbc
ID eval appreciated
High flow as necessary to maintain saturation 92%, wean as tolerated
IV decadron 4mg Q8H
Duoneb R QID and prn
mucinex, prn robitussin
incentive spirometer, acapella
CT chest noted no PE, diffuse pna vs sarcoidosis vs lymphoma (close follow up CT recommended), T8 compression fx also noted age indeterminate
ECHO appreciated EF 60-65% no significant valve abn's
strep legionella neg
rhinovirus pos
#HTN
cont home lisinopril with holding parameters
#HLD
cont home statin
#PAD
pain control
cont home muscle relaxant
dvt ppx Lovenox
gi ppx protonix
Full Code
Total Critical Care Time__45___ minutes. I was immediately available to the patient and staff. I personally examined, reviewed labs, diagnostic images/reports, interpretations, treatment plans, discussed patient care with other providers and
patient, entered orders as appropriate and documented the medical record.
Anticipated Discharge: > 48 hours
Subjective/Interval History
-
Date of Service: August 30, 2024
Overall reports feeling well. Remains on high flow, otherwise appears comfortable. Eating breakfast without issues.
Objective Data
-
Labs:
Laboratory Results
08/30/24
04:19
WBC 17.1 H
Hgb 11.7 L
Hct 36.2 L
Plt Count 504 H
Sodium 139
Potassium 5.1
Chloride 103
Carbon Dioxide 32 H
BUN 38 H
Creatinine 0.9
Glucose 130 H
Calcium 8.8
Vital Signs:
Vital Signs
Temp Pulse Resp BP Pulse Ox
97.7 F 85 30 145/81 91
08/29/24 23:00 08/30/24 00:00 08/30/24 00:00 08/30/24 00:00 08/30/24 03:17
I&O
08/29/24 08/30/24 08/31/24
06:59 06:59 06:59
Intake Total 250 / 250 2110 / 2110
Output Total 2250 / 2250 1250 / 1250
Balance -1999 / -1999 860 / 860
[2024-08-30] MEDS: DUONEB 3 ML INH (07:49)
[2024-08-30] MEDS: PULMICORT 0.5 MG INH ×2 (07:49→20:15)
[2024-08-30] MEDS: ZESTRIL PO (08:00)
[2024-08-30] MEDS: METHOCARBAMOL 750 MG PO ×4 (08:00→22:02)
[2024-08-30] MEDS: MUCINEX 600 MG PO ×2 (08:00→19:17)
[2024-08-30] MEDS: ASPIR LOW (ENTERIC COATED) 81 MG PO (08:00)
--- NOTE | 2024-08-30 08:00 | PTCARENOTE ---
Report received from nightshift RN. pt aaox3. high flow NC in use. pt on cardiac monitors and continuous pulse ox. pt assisted to and from bathroom without issue, +BM. working on ordering breakfast. no pressing concerns at this time. plan of
care continues to be followed.
[2024-08-30] MEDS: ZITHROMAX 500 MG PO (08:01)
[2024-08-30] MEDS: PEPCID 20 MG PO (08:01)
[2024-08-30] MEDS: VITAMIN D3 (cholecalciferol) 25 MCG PO (08:01)
--- NOTE | 2024-08-30 08:24 | W.PN.INTV ---
Today's Communication / Plan
Recommendations
Patient is breathing comfortably on midflow nasal cannula @ 10L/min
Maintain SpO2 88%-94%
Up OOB as tolerated
PT/OT
Continue systemic steroids
Continue budesonide and start Spiriva and change DuoNebs to nebulized albuterol
Mucolytics
Antibiotics per ID
Supportive care given his viral etiology for pneumonia/pneumonitis
Patient is stable for downgrade out of ICU to IMU. Pulmonary service will continue to follow along.
Assessment
-
69-year-old male with history of COPD, pneumonia, 120+ pack-year history of smoking quit presents with 1 week of increased shortness of breath, chest congestion found to be hypoxic requiring high flow oxygen. Imaging suggest extensive bilateral
pneumonia. We are asked to comment on pulmonary process
Acute hypoxic respiratory failure due to viral pneumonia (RVP panel positive for rhinovirus)
Bilateral pneumonia/pneumonitis
Bronchiolitis, basilar predominant
Chest congestion, cough, shortness of breath x 1 week
Leukocytosis
Mild pulm hypertension, PA pressure 45
Normal biventricular function, per echo 08/28/2024
Conditions present prior to admission
Hypertension/hyperlipidemia
125+ pack-year history of smoking, quit 2017
Family history of emphysema, son at age 58
Plan/recommendations
At this time, patient requiring significant oxygen although appears to be comfortable, nontoxic in appearance
Today he was transitioned off of high flow nasal cannula down to midflow nasal cannula, currently at 10 L/min and is breathing comfortably and saturating 94%
Maintain SaO2 goal 88-94%
Chest x-ray and CT chest suggestive bilateral bronchiolitis
Patient denies significant symptoms prior to 1 week ago although describes chronic shortness of breath at baseline
Echocardiogram 08/28/2024 with normal biventricular function, mild pulmonary hypertension, PA pressure 45
Moving forward
Continue with empiric antibiotics per ID, currently on ceftriaxone/Zithromax
Continue with systemic steroids, currently with Decadron 4 mg IV q8hr
Maintain euglycemia while on high-dose steroids
Continue mucolytics
Continue budesonide + change DuoNebs to albuterol, and okay to start Spiriva
Supportive care in the setting of patient's viral pneumonia
Influenza negative
Urine antigens for Legionella + strep pneumonia both negative
Lower extremity duplex negative for DVT
At some point, patient will need to be on a better inhaler regimen
He has been told he has 'severe' COPD but is only on Airsupra and Spiriva which is suboptimal maintenance therapy
He would benefit from eventual full PFT and pulmonary follow-up as outpatient
Unclear whether he has a baseline interstitial process
DVT prophylaxis: Enoxaparin
GI prophylaxis: Pepcid
Patient is stable for downgrade out of ICU to IMU. Pulmonary service will continue to follow along.
Total time spent today was 58 minutes for this encounter. Time includes reviewing laboratory test/imaging results, reviewing pertinent medical records, obtaining and reviewing medical history, performing an appropriate exam, ordering medications,
tests and procedures. Time also includes documentation of this encounter, coordinating patient care and communicating with other healthcare professionals. Total time does not include separately billed tests performed on this date of service.
Subjective Dataa
Subjective Data
Date of Service:
Date of Service: August 30, 2024
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
Subjective:
Patient seen and evaluated this morning. Heart rate 93, BP 144/80. Patient was on high flow nasal cannula and was transitioned to midflow nasal cannula at 10 L/min and saturations remaining 94%. Patient denies shortness of breath or cough.
Review of Systems
General: Other (Negative unless mentioned above)
Objective Data
Data Reviewed
Vital Signs / I&O / Oxygen:
Vital Signs
Temp Pulse Resp BP Pulse Ox
98.2 F 90 18 154/119 91
08/30/24 07:18 08/30/24 11:00 08/30/24 11:00 08/30/24 11:00 08/30/24 11:00
Intake and Output
08/29/24 08/30/24 08/31/24
06:59 06:59 06:59
Intake Total 250 / 250 2110 / 2110 240 / 240
Output Total 2250 / 2250 1250 / 1250 100 / 100
Balance -2000 / -1999 860 / 860 140 / 140
SaO2 91
Nasal Cannula flow liters per 10
minute
Physical Exam
General: Respiratory Distress (negative), Comfortable, Chills (negative) and Sweats (negative)
HEENT: Normocephalic and Anicteric
Cardiovascular: S1-S2 and Peripheral Edema (negative)
Respiratory: Wheeze (negative), Rhonchi (negative) and Other (Coarse breath sounds heard bilaterally)
GI: Soft, Non Distended, Non Tender and Normal Bowel Sounds
Neurology: AO x 3 and Tremors (negative)
Skin: Warm, Dry, Cyanosis (negative) and Jaundice (negative)
Labs/Micro/Reports
Lab Data
08/30/24 04:19
08/30/24 04:19
Laboratory Results
08/29/24
12:48
PT 14.6
INR 1.11
APTT 31.0
Microbiology
08/28/24 08:55 Blood/Venous Blood Culture - Preliminary
No Growth in 48 hours- Final report to follow
08/28/24 08:46 Blood/Venous Blood Culture - Preliminary
No Growth in 48 hours- Final report to follow
08/29/24 21:59 Urine Legionella Urinary Antigen - Final
Negative for Legionella pneumophila Serogroup 1 antigen.
A negative result does not rule out the possiblity of
Legionella infection due to other serogroups or species of
Legionella. Clinical correlation is recommended.
08/29/24 21:59 Urine Streptococcus pneumoniae Antigen (M - Final
Negative for Streptococcus pneumoniae antigen.
A negative result does not exclude infection with
Streptococcus pneumoniae. Clinical correlation is
recommended.
08/29/24 14:11 Nasalpharynx Influenza Type A (PCR) - Final
Not Detected
08/29/24 14:11 Nasalpharynx Influenza Type A (H1) (PCR) - Final
Not Detected
08/29/24 14:11 Nasalpharynx Influenza Type A (H3) (PCR) - Final
Not Detected
08/29/24 14:11 Nasalpharynx Influenza Type B (PCR) - Final
Not Detected
08/29/24 14:11 Nasalpharynx Resp Syncytial Virus Type A (PCR) - Final
Not Detected
08/29/24 14:11 Nasalpharynx Resp Syncytial Virus Type B (PCR) - Final
Not Detected
08/29/24 14:11 Nasalpharynx Adenovirus DNA (PCR) - Final
Not Detected
08/29/24 14:11 Nasalpharynx Human Metapneumovirus (PCR) - Final
Not Detected
08/29/24 14:11 Nasalpharynx Parainfluenza Virus Type 1 (PCR) - Final
Not Detected
08/29/24 14:11 Nasalpharynx Parainfluenza Virus Type 2 (PCR) - Final
Not Detected
08/29/24 14:11 Nasalpharynx Parainfluenza Virus Type 3 (PCR) - Final
Not Detected
08/29/24 14:11 Nasalpharynx Parainfluenza Virus Type 4 - Final
Not Detected
08/29/24 14:11 Nasalpharynx Rhinovirus (PCR) - Final
08/28/24 13:27 Sputum Gram Stain - Preliminary
08/28/24 08:29 Nasal Swab Influenza Types A & B (ALKA) - Final
Negative for Influenza A & B, NAAT
Negative results must be combined with clinical observations
and patient history.
Nucleic Acid Amplification test (NAAT)performed on the
[employer] platform.
[2024-08-30] MEDS: SPIRIVA RESPIMAT 2.5 MCG 2 PUFF INH (10:52)
--- NOTE | 2024-08-30 12:00 | PTCARENOTE ---
pt placed on mid flow NC by respiratory since last note. pt is tolerating it well sating 93-94%. no other changes noted. pt did mention to this RN that he would like to be a DNR status. MD Mauricio made aware in person. pt tolerated bedside
recliner well. plan of care continues to be followed.
[2024-08-30] MEDS: ROBITUSSIN 200 MG PO (12:11)
--- NOTE | 2024-08-30 12:24 | W.PN.ID1 ---
Date of Service
Date of Service: August 30, 2024
Today's Communication
Continue ceftriaxone and azithromycin.
Assessment / Plan
B/L PNA
Hypoxemic respiratory insufficiency; now on mid flow O2
Leukocytosis
Thrombocytosis
Exacerbation COPD
Hx HTN
HLD
PAD
Recommendations:
Respiratory culture: usual resp raghu
blood cultures neg
Legionella and streptococcal urinary antigens neg.
Continue with ceftriaxone and Azithromycin.
Monitor white count and temperature curve.
Agree with IV steroids.
Will continue to follow clinically.
Chief Complaint
-: Pneumonia
Subjective / Review of Systems
SOB/Cough stable
Vital Signs / Physical Exam
Vital Signs
Vital Signs
Temp Pulse Resp BP Pulse Ox
98.4 F 91 31 156/88 95
08/30/24 11:00 08/30/24 12:00 08/30/24 12:00 08/30/24 12:00 08/30/24 12:00
Physical Exam
Constitutional: No Acute Distress and Comfortable
Cardiovascular: Regular Rate and S1/S2
Pulmonary: Clear and Other (Decreased airway movement)
Gastrointestinal: Soft, Non Tender, Non Distended and Normal Bowel Sounds
Genito-Urinary: Negative CVA Tenderness
Neurological: AO x 3
Objective Data
Lab Data
Lab Results
08/30/24 04:19
08/30/24 04:19
PT 14.6 Sec (11.4-14.6) 08/29/24 12:48
INR 1.11 08/29/24 12:48
APTT 31.0 Sec (23.4-35.0) 08/29/24 12:48
Estimated Creat Clear 93 ml/min 08/30/24 04:19
Lactic Acid 1.4 mmol/L (0.7-2.0) 08/28/24 08:38
Total Bilirubin 0.8 mg/dl (0.2-1.3) 08/28/24 08:22
AST 41 U/L (17-59) 08/28/24 08:22
ALT 46 U/L (0-50) 08/28/24 08:22
Alkaline Phosphatase 119 U/L (38-126) 08/28/24 08:22
Most recent labs reviewed.
Micro Results:
08/28/24 13:27 Respiratory Culture - Preliminary
Sputum Usual Respiratory Raghu
Gram Stain - Preliminary
08/28/24 08:55 Blood Culture - Preliminary
Blood/Venous No Growth in 48 hours- Final report to follow
08/28/24 08:46 Blood Culture - Preliminary
Blood/Venous No Growth in 48 hours- Final report to follow
08/29/24 21:59 Legionella Urinary Antigen - Final
Urine Negative for Legionella pneumophila Serogroup 1 antigen.
A negative result does not rule out the possiblity of
Legionella infection due to other serogroups or species of
Legionella. Clinical correlation is recommended.
Streptococcus pneumoniae Antigen (M - Final
Negative for Streptococcus pneumoniae antigen.
A negative result does not exclude infection with
Streptococcus pneumoniae. Clinical correlation is
recommended.
08/29/24 14:11 Influenza Type A (PCR) - Final
Nasalpharynx Not Detected
Influenza Type A (H1) (PCR) - Final
Not Detected
Influenza Type A (H3) (PCR) - Final
Not Detected
Influenza Type B (PCR) - Final
Not Detected
Resp Syncytial Virus Type A (PCR) - Final
Not Detected
Resp Syncytial Virus Type B (PCR) - Final
Not Detected
Adenovirus DNA (PCR) - Final
Not Detected
Human Metapneumovirus (PCR) - Final
Not Detected
Parainfluenza Virus Type 1 (PCR) - Final
Not Detected
Parainfluenza Virus Type 2 (PCR) - Final
Not Detected
Parainfluenza Virus Type 3 (PCR) - Final
Not Detected
Parainfluenza Virus Type 4 - Final
Not Detected
Rhinovirus (PCR) - Final
08/28/24 08:29 Influenza Types A & B (ALKA) - Final
Nasal Swab Negative for Influenza A & B, NAAT
Negative results must be combined with clinical observations
and patient history.
Nucleic Acid Amplification test (NAAT)performed on the
[employer] platform.
Imaging:
08/29/2024 CXR (portable): Severe bilateral endobronchial disease throughout the mid and lower lungs with small airspace consolidations in the right lower lobe and lingula unchanged from prior.
08/28/2024 CT chest (PE study): No pulmonary embolism noted. There is severe pulmonary parenchymal disease along with mediastinal and right hilar adenopathy raising suspicion of sarcoidosis versus pneumonia. Please see full dictation for additional
detail. Film personally viewed.
[2024-08-30] MEDS: ROCEPHIN 1000 MG IV (13:50)
[2024-08-30] MEDS: STERILE WATER FOR INJECTION 10 ML IV (13:50)
--- NOTE | 2024-08-30 16:00 | PTCARENOTE ---
pt continues to tolerate mid flow NC at 8LPM sating mid 90s. pt active, able to get to the chair and bathroom today with minimal assist. tolerated po meals thus far. no pressing issues or concerns. remains on monitors and continuous pulse ox.
plan of care continues to be followed.
[2024-08-30] MEDS: LOVENOX 40 MG SC (17:13)
[2024-08-30] MEDS: VENTOLIN NEBULES 2.5 MG INH (20:15)
--- NOTE | 2024-08-30 20:49 | PTCARENOTE ---
Patient received in bed on 8L midflow oxygen. AAOx4 and able to make his needs known. Plan of care for the shift reviewed with the patient. NSR on the monitor. Palpable pulses throughout. Breath sounds diminished. SpO2 at 93% on midflow oxygen. The
patient had increase work of breathing while talking about a past experience that his friend had at the hospital. Encouraged the patient take take slow deep breaths and focus on his health at this time. Patient also encouraged to utilize the call
rothman prior to getting oob. He's agreeable. All needs are met at this time. Call rothman and personal belongings are within reach.
--- NOTE | 2024-08-30 21:11 | PTCARENOTE ---
The patient vocalized wanting to be DNR instead of full code. Patient stated that he was not aware of full code status as he 'would never want to be brought back to this world.' Pt stated that his brother was coded for 15 minutes leaving him brain
. As such, he'd rather be DNR. SUPERVISOR FINE GRADING made aware.
--- NOTE | 2024-08-30 21:24 | W.PN.UPDATE ---
Update Note
Progress Note Update
Patient requested to update code status to limited DNR. In the event his heart stops he does not want ACLS medications, defibrillation, or CPR. He would be ok with intubation if his breathing becomes worse. He requested his code status be updated
because his brother's heart had stopped and was resuscitated, he does not wish to have those same interventions. Reviewed risk/benefits of interventions, all questions answered, patient verbalized understanding changing his code status to limited
DNR (no cpr or defibrillation). Orders updated in the chart. Dr. Mauricio master scheduler and RN updated on patient's wishes/discussion.
[2024-08-30] MEDS: LIPITOR 10 MG PO (22:02)
[2024-08-31] VITALS (11 sets, daily range): BP systolic 134–164; BP diastolic 73–105; BMI 26.7
[2024-08-31] MEDS: DECADRON 4 MG IV ×3 (01:51→17:32)
[2024-08-31 03:55] LABS: % Basophils 0.2 % (0-2); % Eosinophils 0.1 % (0-6); % Immature Granulocytes 0.8 % (0-0.5); % Lymphocytes 8.3 % (20.5-51.1); % Monocytes 4.4 % (1.7-9.3); % Neutrophils 86.2 % (42.2-75.2); Absolute Immature Granulocytes 0.1 10^3/uL (0-0.05); Absolute Monocytes 0.5 10^3/uL (0.1-0.6); Absolute Neutrophils 10.7 10^3/uL (1.4-6.5); Hematocrit 36.6 % (39.0-52.0); Hemoglobin 11.8 g/dL (13.0-18.0); Mean Corp Hgb Conc. 32.2 g/dL (33.0-37.0); Mean Corpuscular Hgb 29.4 pg (27.0-31.0); Mean Platelet Volume 8.9 fL (7.4-10.4); Nucleated Red Blood Cells % 0 % (-); Platelet Count 533 10^3/uL (130-400); Red Blood Cell Count 4.02 10^6/uL (4.70-6.10); Red Cell Dist. Width 13.6 % (11.5-14.5); White Blood Cell Count 12.4 10^3/uL (4.8-10.8)
--- NOTE | 2024-08-31 04:13 | PTCARENOTE ---
Patient reassessed. SpO2 at 94% on midflow o2 8L. Turns and repositions himself. Labs drawn and sent. No changes from the previous assessment.
[2024-08-31 04:18] LABS: Blood Urea Nitrogen 34 mg/dl (9-20); Calcium 9.2 mg/dl (8.4-10.2); Carbon Dioxide 31 mmol/L (22-30); Chloride 103 mmol/L (98-107); Estimated Creatinine Clearance 104 ml/min; Glucose 134 mg/dl (70-99); Magnesium 1.9 mg/dl (1.6-2.3); Phosphorus 4.5 mg/dl (2.5-4.5); Potassium 5.4 mmol/L (3.5-5.1); Sodium 140 mmol/L (135-145); eGFR > 60.00
[2024-08-31 06:40] LABS: B.E. 9.5 mmol/L; HCO3 35.3 mmol/L (21-28); O2 Saturation % 94.3 % (94-98); PCO2 52 mmHg (35-48); PO2 66 mmHg (83-108); pH 7.44 (7.35-7.45)
--- NOTE | 2024-08-31 07:00 | W.PN.HOSP.TC ---
Today's Communication/Plan
-
cont abx as per ID
downgrade to Tele
wean O2 supplementation as tolerated
steroids bronchodilators
nebulizer therapy as per Pulm
Assessment / Plan
Assessment / Plan
Physical Exam
General: No pallor, cyanosis, or jaundice.
HEENT: Throat clear. PERRLA Normocephalic atraumatic
NECK: Supple. No carotid Bruits
RESPIRATORY: clear to auscultation b/l
CVS: S1, S2 sinus tachycardia. No murmur, rub or gallop.
ABDOMEN: Soft, non-tender. No distension. BS+/normal.
EXTREMITIES: No peripheral cyanosis, no edema lower ext's. No significant Calf tenderness
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
IMPRESSION:
69M HTN, HLD, PAD, COPD former smoker p/w 1 week of increased cough, decreased appetite, wheezing, SOB, exertional dyspnea, orthopnea and leg swelling. Denies fever chills calf tenderness. Hypoxic to 86% on room air during ED evaluation. Patient
required High Flow to maintain adequate saturation 90s. Denied chest pain fever chills nausea vomiting diarrhea constipation. Endorses having a roommate who smokes. AOx3 conversant coherent. Patient afebrile but sinus tachy with wbc 23. No
significant Lactic acidosis or hypotension. CXR suggestive multifocal pneumonia.
PLAN:
#Sepsis secondary to multifocal pneumonia
#Viral pneumonia
#Acute hypoxic respiratory failure
#COPD exacerbation
#Possible Sarcoidosis
#Viral Pneumonia Rhinovirus positive possible superimposed bacterial pneumonia as well (strep legionella neg)
IMU admit transferred to ICU closer monitoring d/t worsening oxygen requirement max high flow w NRB, patient since weaned down to 2L stable for downgrade to Tele
Pulm eval appreciated
Received empiric and Zosyn in ED, abx continued w ceftriaxone azithromycin
sputum culture normal respiratory Abeba
blood cultures NGTD
Leukocytosis trending down despite IV steroids
ID eval appreciated
wean O2 supplementation as tolerated
IV decadron 4mg Q8H, eventual taper as clinically improves
Duoneb R QID and prn
mucinex, prn robitussin
incentive spirometer, acapella
CT chest noted no PE, diffuse pna vs sarcoidosis vs lymphoma (close follow up CT recommended), T8 compression fx also noted age indeterminate
ECHO appreciated EF 60-65% no significant valve abn's
#HTN
cont home lisinopril with holding parameters
monitor and titrate antihypertensive regimen as necessary
possible exacerbation by steroids, may improve with eventual taper
#HLD
cont home statin
#PAD
pain control
cont home muscle relaxant
PT/OT appreciated SNF rehab
dvt ppx Lovenox
gi ppx protonix
Full Code
Downgrade to Tele
I spent a total of 50 minutes with the patient or on the floor. More than 50% of this time involved counseling and coordination of care.
Anticipated Discharge: 24 - 48 hours
Subjective/Interval History
-
Date of Service: August 31, 2024
No acute distress, appears comfortable. Significant improvement in overall symptoms. Weaning down on oxygen supplementation. Overall patient reports feeling well. Denies new acute issues at this time.
Objective Data
-
Labs:
Laboratory Results
08/31/24 08/31/24
03:43 06:33
WBC 12.4 H
Hgb 11.8 L
Hct 36.6 L
Plt Count 533 H
HCO3 35.3 H
Sodium 140
Potassium 5.4 H
Chloride 103
Carbon Dioxide 31 H
BUN 34 H
Creatinine 0.8
Glucose 134 H
Calcium 9.2
Vital Signs:
Vital Signs
Temp Pulse Resp BP Pulse Ox
97.7 F 80 27 157/96 95
08/31/24 03:00 08/31/24 06:06 08/31/24 06:06 08/31/24 06:06 08/31/24 06:06
I&O
08/30/24 08/31/24 09/01/24
06:59 06:59 06:59
Intake Total 2110 / 2110 1760 / 1760
Output Total 1250 / 1250 950 / 950
Balance 860 / 860 810 / 810
[2024-08-31] MEDS: VENTOLIN NEBULES 2.5 MG INH ×2 (07:10→19:59)
[2024-08-31] MEDS: SPIRIVA RESPIMAT 2.5 MCG 2 PUFF INH (07:10)
[2024-08-31] MEDS: PULMICORT 0.5 MG INH ×2 (07:10→19:59)
[2024-08-31] MEDS: ASPIR LOW (ENTERIC COATED) 81 MG PO (07:27)
[2024-08-31] MEDS: ZITHROMAX 500 MG PO (07:28)
[2024-08-31] MEDS: PEPCID 20 MG PO (07:28)
[2024-08-31] MEDS: ZESTRIL PO (07:28)
[2024-08-31] MEDS: VITAMIN D3 (cholecalciferol) 25 MCG PO (07:28)
[2024-08-31] MEDS: METHOCARBAMOL 750 MG PO ×4 (07:28→21:59)
[2024-08-31] MEDS: MUCINEX 600 MG PO ×2 (07:28→20:05)
--- NOTE | 2024-08-31 08:28 | PTCARENOTE ---
Rec'd care of patient at 0700. Patient alert and oriented. CHITINA. NSR on tele monitor. No edema. Palpable pulses. Lisinopril held per parameters; K-5.4. Pulse ox 93-94% on 8L MF upon start of shift. Patient assisted oob to chair at 0730. Pulse ox down
to 84-86%. Oxygen increased to 15L in order to maintain pulse ox >90%. Will wean as tolerated. Lung sounds diminished throughout. Tachypneic. WILSON. Productive cough present. IS and Acapella encouraged. Patient utilizing appropriately. +BS. Per
patient, he has had multiple formed bm's since admission. Appetite good. Voiding via urinal. Peripheral sites flushed; capped. Call rothman within reach. Patient verbalizes understanding that he may not get up without supervision.
--- NOTE | 2024-08-31 09:12 | PTCARENOTE ---
Oxygen currently weaned to 6L; pulse ox 94%.
--- NOTE | 2024-08-31 10:27 | CM ---
CM met with pt bedside
Pt resides with his roommate/Elissa (male) who is a childhood friend
Elissa is an amputee and helps with cooking
They reside in a 1st floor apt with [address]STE building
Pt is indep with his ADLs without ADs, drives+
Has a neb and trelegy
He has a WW, SPC and W/C for use if needed
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
PCP- India Magallanes
Rx- [facility]
Pt has no family and POA
He is in the ICU with midflow O2 requirements
Droplet precautions for rhinovirus
Indep from bed to chair per nursing
Discharge Disposition- home, follow for possible VN/O2 needs
--- NOTE | 2024-08-31 10:35 | W.PN.ID1 ---
Date of Service
Date of Service: August 31, 2024
Today's Communication
Continue abx's.
Assessment / Plan
B/L PNA
Hypoxemic respiratory insufficiency; now on mid flow O2
Leukocytosis
Thrombocytosis
Exacerbation COPD
Hx HTN
HLD
PAD
Recommendations:
Respiratory culture: usual resp raghu
blood cultures neg
Legionella and streptococcal urinary antigens neg.
Continue with ceftriaxone and Azithromycin.
Monitor white count and temperature curve.
Continue steroid as per Pulm.
Will continue to follow clinically.
Chief Complaint
-: Pneumonia
Subjective / Review of Systems
Feels improved.
Vital Signs / Physical Exam
Vital Signs
Vital Signs
Temp Pulse Resp BP Pulse Ox
97.6 F 76 28 134/86 89
08/31/24 07:28 08/31/24 10:00 08/31/24 10:00 08/31/24 10:00 08/31/24 10:00
Physical Exam
Constitutional: No Acute Distress
Cardiovascular: Regular Rate and S1/S2
Pulmonary: Clear
Gastrointestinal: Soft, Non Tender, Non Distended and Normal Bowel Sounds
Extremities: Negative Edema
Neurological: AO x 3
Objective Data
Lab Data
Lab Results
08/31/24 03:43
08/31/24 03:43
PT 14.6 Sec (11.4-14.6) 08/29/24 12:48
INR 1.11 08/29/24 12:48
APTT 31.0 Sec (23.4-35.0) 08/29/24 12:48
Estimated Creat Clear 104 ml/min 08/31/24 03:43
Lactic Acid 1.4 mmol/L (0.7-2.0) 08/28/24 08:38
Total Bilirubin 0.8 mg/dl (0.2-1.3) 08/28/24 08:22
AST 41 U/L (17-59) 08/28/24 08:22
ALT 46 U/L (0-50) 08/28/24 08:22
Alkaline Phosphatase 119 U/L (38-126) 08/28/24 08:22
Most recent labs reviewed.
Micro Results:
08/28/24 08:55 Blood Culture - Preliminary
Blood/Venous No Growth in 72 hours- Final report to follow
08/28/24 08:46 Blood Culture - Preliminary
Blood/Venous No Growth in 72 hours- Final report to follow
08/28/24 13:27 Respiratory Culture - Preliminary
Sputum Usual Respiratory Raghu
Gram Stain - Preliminary
08/29/24 21:59 Legionella Urinary Antigen - Final
Urine Negative for Legionella pneumophila Serogroup 1 antigen.
A negative result does not rule out the possiblity of
Legionella infection due to other serogroups or species of
Legionella. Clinical correlation is recommended.
Streptococcus pneumoniae Antigen (M - Final
Negative for Streptococcus pneumoniae antigen.
A negative result does not exclude infection with
Streptococcus pneumoniae. Clinical correlation is
recommended.
08/29/24 14:11 Influenza Type A (PCR) - Final
Nasalpharynx Not Detected
Influenza Type A (H1) (PCR) - Final
Not Detected
Influenza Type A (H3) (PCR) - Final
Not Detected
Influenza Type B (PCR) - Final
Not Detected
Resp Syncytial Virus Type A (PCR) - Final
Not Detected
Resp Syncytial Virus Type B (PCR) - Final
Not Detected
Adenovirus DNA (PCR) - Final
Not Detected
Human Metapneumovirus (PCR) - Final
Not Detected
Parainfluenza Virus Type 1 (PCR) - Final
Not Detected
Parainfluenza Virus Type 2 (PCR) - Final
Not Detected
Parainfluenza Virus Type 3 (PCR) - Final
Not Detected
Parainfluenza Virus Type 4 - Final
Not Detected
Rhinovirus (PCR) - Final
08/28/24 08:29 Influenza Types A & B (ALKA) - Final
Nasal Swab Negative for Influenza A & B, NAAT
Negative results must be combined with clinical observations
and patient history.
Nucleic Acid Amplification test (NAAT)performed on the
[employer] platform.
Imaging:
08/29/2024 CXR (portable): Severe bilateral endobronchial disease throughout the mid and lower lungs with small airspace consolidations in the right lower lobe and lingula unchanged from prior.
08/28/2024 CT chest (PE study): No pulmonary embolism noted. There is severe pulmonary parenchymal disease along with mediastinal and right hilar adenopathy raising suspicion of sarcoidosis versus pneumonia. Please see full dictation for additional
detail. Film personally viewed.
--- NOTE | 2024-08-31 11:30 | W.PN.PUL3 ---
Today's Communication / Plan
-
Patient is breathing comfortably at 2L/min
Maintain SpO2 88%-94%
Up OOB as tolerated
PT/OT
Continue systemic steroids, weaning as he clinically improves
Continue budesonide and Spiriva with nebulized albuterol BID
Mucolytics
Antibiotics per ID
Supportive care given his viral etiology for pneumonia/pneumonitis
Pulmonary service will continue to follow along.
Assessment
-
69-year-old male with history of COPD, pneumonia, 120+ pack-year history of smoking quit presents with 1 week of increased shortness of breath, chest congestion found to be hypoxic requiring high flow oxygen. Imaging suggest extensive bilateral
pneumonia. We are asked to comment on pulmonary process
Acute hypoxic respiratory failure due to viral pneumonia (RVP panel positive for rhinovirus)
Bilateral pneumonia/pneumonitis
Bronchiolitis, basilar predominant
Chest congestion, cough, shortness of breath x 1 week
Leukocytosis
Mild pulm hypertension, PA pressure 45
Normal biventricular function, per echo 08/28/2024
Conditions present prior to admission
Hypertension/hyperlipidemia
125+ pack-year history of smoking, quit 2017
Family history of emphysema, son at age 58
Plan/recommendations
Patient was requiring significant oxygen despite him appearing comfortable, nontoxic in appearance
On 08/30, he was transitioned off of high flow nasal cannula down to midflow nasal cannula, needing 10 L/min and is breathing comfortably and saturating 94%
As of today (08/31), he is now down to 2 L/min nasal cannula saturating 94% and breathing comfortably
Maintain SaO2 goal 88-94%
Chest x-ray and CT chest suggestive bilateral bronchiolitis
Patient denies significant symptoms prior to 1 week ago although describes chronic shortness of breath at baseline
Echocardiogram 08/28/2024 with normal biventricular function, mild pulmonary hypertension, PA pressure 45
Moving forward
Continue with empiric antibiotics per ID, currently on ceftriaxone/Zithromax
Continue with systemic steroids, currently with Decadron 4 mg IV q8hr, continue to wean as he clinically improves
Maintain euglycemia while on high-dose steroids
Continue mucolytics
Continue budesonide + changed DuoNebs to albuterol BID, and started Spiriva
Supportive care in the setting of patient's viral pneumonia
Influenza negative
Urine antigens for Legionella + strep pneumonia both negative
Lower extremity duplex negative for DVT
At some point, patient will need to be on a better inhaler regimen
He has been told he has 'severe' COPD but is only on Airsupra and Spiriva which is suboptimal maintenance therapy
He would benefit from eventual full PFT and pulmonary follow-up as outpatient
Unclear whether he has a baseline interstitial process
DVT prophylaxis: Enoxaparin
GI prophylaxis: Pepcid
Pulmonary service will continue to follow along.
Total time spent today was 38 minutes for this encounter. Time includes reviewing laboratory test/imaging results, reviewing pertinent medical records, obtaining and reviewing medical history, performing an appropriate exam, ordering medications,
tests and procedures. Time also includes documentation of this encounter, coordinating patient care and communicating with other healthcare professionals. Total time does not include separately billed tests performed on this date of service.
Subjective Data
-
Date of Service:
Date of Service: August 31, 2024
Chief Complaint: Pulmonary Follow Up
Subjective:
Patient seen today at bedside. Feeling much better. Currently down to 2 L/min nasal cannula. Saturating 94% heart rate 91 and BP 157/81. He denies chest pain, TONG, fevers or chills.
Review of Systems
General: Other (Negative unless mentioned above)
Objective Data
Data Reviewed
Vital Signs / I&O / Oxygen:
Vital Signs
Temp Pulse Resp BP Pulse Ox
97.6 F 76 28 134/86 89
08/31/24 07:28 08/31/24 10:00 08/31/24 10:00 08/31/24 10:08/31/24 10:00
Intake and Output
08/30/24 08/31/24 09/01/24
06:59 06:59 06:59
Intake Total 2110 / 2110 1760 / 1760 480 / 480
Output Total 1250 / 1250 950 / 950 200 / 200
Balance 860 / 860 810 / 810 280 / 280
SaO2 89
Nasal Cannula flow liters per 6
minute
Physical Exam
General: Respiratory Distress (n) and Comfortable
HEENT: Normocephalic and Anicteric
Cardiovascular: S1-S2, Regular Rhythm, Murmur (n), Rub (n), Peripheral Edema (n) and Calf Tenderness (n)
Respiratory: Wheeze (Mild expiratory wheezing heard bilaterally), Crackles (n), Rhonchi, Non-Labored Respirations, Stridor (n) and Other (Greatly diminished breath sounds bilaterally)
GI: Soft, Non Distended, Non Tender and Normal Bowel Sounds
Neurology: AO x 3 and Tremors (n)
Skin: Warm, Dry, Cyanosis (n) and Jaundice (n)
Labs/Micro/Reports
Lab Data
08/31/24 03:43
08/31/24 03:43
Laboratory Results
08/31/24
06:33
pH 7.44
pCO2 52 H
pO2 66 L
HCO3 35.3 H
O2 Delivery Level
Microbiology
08/28/24 08:55 Blood/Venous Blood Culture - Preliminary
No Growth in 72 hours- Final report to follow
08/28/24 08:46 Blood/Venous Blood Culture - Preliminary
No Growth in 72 hours- Final report to follow
08/28/24 13:27 Sputum Respiratory Culture - Preliminary
Usual Respiratory Abeba
08/28/24 13:27 Sputum Gram Stain - Preliminary
08/29/24 21:59 Urine Legionella Urinary Antigen - Final
Negative for Legionella pneumophila Serogroup 1 antigen.
A negative result does not rule out the possiblity of
Legionella infection due to other serogroups or species of
Legionella. Clinical correlation is recommended.
08/29/24 21:59 Urine Streptococcus pneumoniae Antigen (M - Final
Negative for Streptococcus pneumoniae antigen.
A negative result does not exclude infection with
Streptococcus pneumoniae. Clinical correlation is
recommended.
08/29/24 14:11 Nasalpharynx Influenza Type A (PCR) - Final
Not Detected
08/29/24 14:11 Nasalpharynx Influenza Type A (H1) (PCR) - Final
Not Detected
08/29/24 14:11 Nasalpharynx Influenza Type A (H3) (PCR) - Final
Not Detected
08/29/24 14:11 Nasalpharynx Influenza Type B (PCR) - Final
Not Detected
08/29/24 14:11 Nasalpharynx Resp Syncytial Virus Type A (PCR) - Final
Not Detected
08/29/24 14:11 Nasalpharynx Resp Syncytial Virus Type B (PCR) - Final
Not Detected
08/29/24 14:11 Nasalpharynx Adenovirus DNA (PCR) - Final
Not Detected
08/29/24 14:11 Nasalpharynx Human Metapneumovirus (PCR) - Final
Not Detected
08/29/24 14:11 Nasalpharynx Parainfluenza Virus Type 1 (PCR) - Final
Not Detected
08/29/24 14:11 Nasalpharynx Parainfluenza Virus Type 2 (PCR) - Final
Not Detected
08/29/24 14:11 Nasalpharynx Parainfluenza Virus Type 3 (PCR) - Final
Not Detected
08/29/24 14:11 Nasalpharynx Parainfluenza Virus Type 4 - Final
Not Detected
08/29/24 14:11 Nasalpharynx Rhinovirus (PCR) - Final
08/28/24 08:29 Nasal Swab Influenza Types A & B (ALKA) - Final
Negative for Influenza A & B, NAAT
Negative results must be combined with clinical observations
and patient history.
Nucleic Acid Amplification test (NAAT)performed on the
[employer] platform.
[2024-08-31] MEDS: STERILE WATER FOR INJECTION 10 ML IV (13:03)
[2024-08-31] MEDS: ROCEPHIN 1000 MG IV (13:04)
--- NOTE | 2024-08-31 14:52 | PTCARENOTE ---
Patient downgraded to tele level. Pulse ox 97-98% on 2L nc. VSS. Resting comfortably in bed. No complaints.
[2024-08-31] MEDS: LOVENOX 40 MG SC (17:32)
--- NOTE | 2024-08-31 20:58 | PTCARENOTE ---
Received pt from previous RN. Pt is AAOx3, [place]. NSR on the monitor. Pt on 2L midflow, O2 sat 93%, lungs diminished/coarse, orthopneic/WILSON/tachypneic/shallow, harsh cough. Pt uses the urinal. CHG bath provided. Call rothman in reach. Safe environment
maintained.
[2024-08-31] MEDS: LIPITOR 10 MG PO (21:59)
[2024-09-01] VITALS (9 sets, daily range): BP systolic 135–165; BP diastolic 79–115; BMI 26.5
[2024-09-01] MEDS: DECADRON 4 MG IV (01:50)
[2024-09-01 04:35] LABS: % Basophils 0.4 % (0-2); % Immature Granulocytes 1.3 % (0-0.5); % Lymphocytes 11.3 % (20.5-51.1); % Monocytes 4.1 % (1.7-9.3); % Neutrophils 82.9 % (42.2-75.2); Absolute Immature Granulocytes 0.1 10^3/uL (0-0.05); Absolute Lymphocytes 1.2 10^3/uL (1.2-3.4); Absolute Monocytes 0.5 10^3/uL (0.1-0.6); Hematocrit 37.5 % (39.0-52.0); Hemoglobin 12.4 g/dL (13.0-18.0); Mean Corp Hgb Conc. 33.1 g/dL (33.0-37.0); Mean Corpuscular Hgb 28.8 pg (27.0-31.0); Mean Corpuscular Volume 87.2 fL (80.0-94.0); Mean Platelet Volume 8.8 fL (7.4-10.4); Nucleated Red Blood Cells % 0 % (-); Platelet Count 604 10^3/uL (130-400); Red Cell Dist. Width 13.5 % (11.5-14.5); White Blood Cell Count 10.9 10^3/uL (4.8-10.8)
[2024-09-01 04:47] LABS: Blood Urea Nitrogen 37 mg/dl (9-20); Calcium 8.8 mg/dl (8.4-10.2); Carbon Dioxide 29 mmol/L (22-30); Chloride 103 mmol/L (98-107); Estimated Creatinine Clearance 104 ml/min; Glucose 128 mg/dl (70-99); Magnesium 1.8 mg/dl (1.6-2.3); Phosphorus 4.4 mg/dl (2.5-4.5); Potassium 5.2 mmol/L (3.5-5.1); Sodium 137 mmol/L (135-145); eGFR > 60.00
[2024-09-01] MEDS: VENTOLIN NEBULES 2.5 MG INH ×2 (07:13→19:42)
[2024-09-01] MEDS: PULMICORT 0.5 MG INH (07:14)
[2024-09-01] MEDS: SPIRIVA RESPIMAT 2.5 MCG 2 PUFF INH (07:14)
[2024-09-01] MEDS: ZESTRIL PO (08:32)
[2024-09-01] MEDS: PEPCID 20 MG PO (08:38)
[2024-09-01] MEDS: ASPIR LOW (ENTERIC COATED) 81 MG PO (08:38)
[2024-09-01] MEDS: ZITHROMAX 500 MG PO (08:38)
[2024-09-01] MEDS: VITAMIN D3 (cholecalciferol) 25 MCG PO (08:38)
[2024-09-01] MEDS: METHOCARBAMOL 750 MG PO ×4 (08:38→21:19)
[2024-09-01] MEDS: MUCINEX 600 MG PO ×2 (08:38→21:19)
--- NOTE | 2024-09-01 08:55 | PTCARENOTE ---
Addendum entered by Johanny Spain RN 09/01/24 11:53:
after vigorous pulmonary toileting, patient able to expectorate large amount thick white sputum. oxygen wean per work list
Original Note:
report received. assessments per work list. patient received on 2 liters, pulse oximeter 80 in spite of I/S and acapella. no cough. breath sounds very diminished posteriorly. assisted oob to chair, has required titration of mid flow up to 12 liters.
pulse oximeter 90-94. patient states his breathing 'feels the same'. Rt updated. hospitalist updated by tiger text
--- NOTE | 2024-09-01 09:47 | W.PN.ID1 ---
Date of Service
Date of Service: September 01, 2024
Today's Communication
Check procalcitonin. See below�
Assessment / Plan
B/L PNA
Hypoxemic respiratory insufficiency; now on mid flow O2
Leukocytosis
Thrombocytosis
Exacerbation COPD
Hx HTN
HLD
PAD
Recommendations:
Respiratory culture: usual resp raghu
blood cultures neg
Legionella and streptococcal urinary antigens neg.
Respiratory viral panel positive for rhinovirus.
- Rhinovirus often causes upper respiratory tract disease, but can cause bilateral pneumonia in select patients.
Patient completing 5 days of Azithromycin today.
Spoke with Critical Care. Will check procalcitonin; if negative, further ceftriaxone can be discontinued.
Monitor white count and temperature curve.
Continue steroid as per Pulm.
Will continue to follow clinically.
����������������������������������������������������������
Chief Complaint
-: Pneumonia
Subjective / Review of Systems
Patient seen and examined. Now on mid flow O2 (10 L). Reports minimal cough. No fevers.
Review of Systems: No Fever and No Chills
Vital Signs / Physical Exam
Vital Signs
Vital Signs
Temp Pulse Resp BP Pulse Ox
97.6 F 72 33 135/79 93
09/01/24 07:20 09/01/24 08:00 09/01/24 08:00 09/01/24 08:00 09/01/24 09:00
Physical Exam
Constitutional: No Acute Distress
Cardiovascular: Regular Rate and S1/S2
Pulmonary: Clear
Gastrointestinal: Soft, Non Tender, Non Distended and Normal Bowel Sounds
Extremities: Negative Edema
Neurological: AO x 3
Objective Data
Lab Data
Lab Results
09/01/24 04:11
09/01/24 04:11
PT 14.6 Sec (11.4-14.6) 08/29/24 12:48
INR 1.11 08/29/24 12:48
APTT 31.0 Sec (23.4-35.0) 08/29/24 12:48
Estimated Creat Clear 104 ml/min 09/01/24 04:11
Lactic Acid 1.4 mmol/L (0.7-2.0) 08/28/24 08:38
Total Bilirubin 0.8 mg/dl (0.2-1.3) 08/28/24 08:22
AST 41 U/L (17-59) 08/28/24 08:22
ALT 46 U/L (0-50) 08/28/24 08:22
Alkaline Phosphatase 119 U/L (38-126) 08/28/24 08:22
Most recent labs reviewed.
Micro Results:
08/28/24 08:55 Blood Culture - Preliminary
Blood/Venous No Growth in 4 days- Final report to follow
08/28/24 08:46 Blood Culture - Preliminary
Blood/Venous No Growth in 4 days- Final report to follow
08/28/24 13:27 Respiratory Culture - Final
Sputum Usual Respiratory Raghu
Gram Stain - Final
08/29/24 21:59 Legionella Urinary Antigen - Final
Urine Negative for Legionella pneumophila Serogroup 1 antigen.
A negative result does not rule out the possiblity of
Legionella infection due to other serogroups or species of
Legionella. Clinical correlation is recommended.
Streptococcus pneumoniae Antigen (M - Final
Negative for Streptococcus pneumoniae antigen.
A negative result does not exclude infection with
Streptococcus pneumoniae. Clinical correlation is
recommended.
08/29/24 14:11 Influenza Type A (PCR) - Final
Nasalpharynx Not Detected
Influenza Type A (H1) (PCR) - Final
Not Detected
Influenza Type A (H3) (PCR) - Final
Not Detected
Influenza Type B (PCR) - Final
Not Detected
Resp Syncytial Virus Type A (PCR) - Final
Not Detected
Resp Syncytial Virus Type B (PCR) - Final
Not Detected
Adenovirus DNA (PCR) - Final
Not Detected
Human Metapneumovirus (PCR) - Final
Not Detected
Parainfluenza Virus Type 1 (PCR) - Final
Not Detected
Parainfluenza Virus Type 2 (PCR) - Final
Not Detected
Parainfluenza Virus Type 3 (PCR) - Final
Not Detected
Parainfluenza Virus Type 4 - Final
Not Detected
Rhinovirus (PCR) - Final
- DETECTED -
08/28/24 08:29 Influenza Types A & B (ALKA) - Final
Nasal Swab Negative for Influenza A & B, NAAT
Negative results must be combined with clinical observations
and patient history.
Nucleic Acid Amplification test (NAAT)performed on the
[employer] platform.
Imaging:
08/29/2024 CXR (portable): Severe bilateral endobronchial disease throughout the mid and lower lungs with small airspace consolidations in the right lower lobe and lingula unchanged from prior.
08/28/2024 CT chest (PE study): No pulmonary embolism noted. There is severe pulmonary parenchymal disease along with mediastinal and right hilar adenopathy raising suspicion of sarcoidosis versus pneumonia. Please see full dictation for additional
detail. Film personally viewed.
Care Review
Plan reviewed with: Physician (Critical Care)
[2024-09-01] MEDS: DELTASONE 30 MG PO (10:21)
[2024-09-01 11:08] LABS: Procalcitonin < 0.05 ng/ml (0.0-0.25)
--- NOTE | 2024-09-01 11:44 | W.PN.PUL3 ---
Today's Communication / Plan
-
- DC IV steroids, start prednisone 30 mg daily for 5 days
- Discontinue antibiotics, procalcitonin unremarkable
- Titrate oxygen, target saturation 90% or above in view of underlying mild pulmonary hypertension
- Outpatient follow-up with pulmonary clinic
Assessment
-
69-year-old male with history of COPD, pneumonia, 120+ pack-year history of smoking quit presents with 1 week of increased shortness of breath, chest congestion found to be hypoxic requiring high flow oxygen. Imaging suggest extensive bilateral
pneumonia. We are asked to comment on pulmonary process
Acute hypoxic respiratory failure due to viral pneumonia (RVP panel positive for rhinovirus)
Bilateral pneumonia/pneumonitis
Bronchiolitis, basilar predominant
Chest congestion, cough, shortness of breath x 1 week
Leukocytosis
Mild pulm hypertension, PA pressure 45
Normal biventricular function, per echo 08/28/2024
Conditions present prior to admission
Hypertension/hyperlipidemia
125+ pack-year history of smoking, quit 2017
Family history of emphysema, son at age 58
Assessment and plan:
#1. Acute hypoxic respiratory failure with bilateral pneumonia.
- Hypoxia improving, patient off high flow now. Currently on mid flow requiring about 10 L.
- Viral panel positive for rhinovirus
- Follow-up chest x-ray done, 09/01, improving
- Afebrile now, cultures otherwise have stayed negative. Hemodynamically stable, not needing any pressors.
- Patient completed 5 days of azithromycin
- Check procalcitonin, if negative, will discontinue ceftriaxone
- ID service on case
#2. [id number] smoking history, with suspected underlying COPD.
- Continue Spiriva
- Continue albuterol as needed
- Discontinue IV Decadron, start prednisone 30 mg daily for 5 days and then discontinue
- Patient needs outpatient follow-up with pulmonary service with pulmonary function testing and 6-minute walk test etc.
#3. Mediastinal and hilar lymphadenopathy.
- Suspect this is reactive to current infection
- However other diseases including sarcoidosis, chronic granulomatous infections also in differential diagnosis.
- Patient will need follow-up imaging in 8 to 12 weeks as outpatient and if lymphadenopathy is persistent, might need EBUS-TBNA
#4. Mild pulmonary hypertension.
- Echocardiogram suggests pulmonary artery systolic pressure around 40-45. RV function is normal as well as RV size normal.
- Likely group 3 with underlying COPD
- Further workup as outpatient
- Continue O2 support to keep saturations above 90%
DVT prophylaxis: Enoxaparin
GI prophylaxis: Pepcid
Pulmonary service will continue to follow along
Total time spent today was 40 minutes for this encounter. Time includes reviewing laboratory test/imaging results, reviewing pertinent medical records, obtaining and reviewing medical history, performing an appropriate exam, ordering medications,
tests and procedures. Time also includes documentation of this encounter, coordinating patient care and communicating with other healthcare professionals. Total time does not include separately billed tests performed on this date of service.
Data
CT Chest 07/2024: Evaluation for pulmonary emboli limited because of respiratory artifact. No obvious discrete filling defects in the pulmonary arterial system to suggest pulmonary emboli.
Severe pulmonary parenchymal disease along with mediastinal and right hilar adenopathy. Most likely diagnosis is sarcoidosis. Lymphoma could give a similar constellation of findings. Other possibility is diffuse pneumonia with reactive mediastinal
and right hilar adenopathy. Consider treating for pneumonia and then performing a close follow-up chest CT for reevaluation.
20% compression fracture of T8 vertebral body. This is of uncertain age.
ECHO 07/2024: 1. Mild concentric left ventricular hypertrophy with preserved systolic
function, ejection fraction 60-65%
2. Normal mitral valve with normal left atrium
3. Mild aortic sclerosis without stenosis or regurgitation
4. Normal right heart with mild pulmonary hypertension, 40-45 mmHg systolic
Subjective Data
-
Date of Service:
Date of Service: September 01, 2024
Chief Complaint: Pulmonary Follow Up
Subjective:
Patient sitting in chair, in no acute distress. Currently on 10 L supplemental oxygen.
Review of Systems
Genitourinary: Other (All 14 systems reviewed and negative except as stated above in the history of present illness.)
Objective Data
Data Reviewed
Vital Signs / I&O / Oxygen:
Vital Signs
Temp Pulse Resp BP Pulse Ox
98.3 F 87 22 136/97 94
09/01/24 11:16 09/01/24 10:00 09/01/24 10:00 09/01/24 10:00 09/01/24 11:43
Intake and Output
08/31/24 09/01/24 09/02/24
06:59 06:59 06:59
Intake Total 1760 / 1760 1030 / 1030 480 / 480
Output Total 950 / 950 1650 / 1650 400 / 400
Balance 810 / 810 -620 / -620 80 / 80
SaO2 94
Nasal Cannula flow liters per 8
minute
Physical Exam
General: Comfortable
HEENT: Normocephalic
Cardiovascular: S1-S2
Respiratory: Other (Decreased bilateral air entry, prolonged expiration. No active wheezing, crackles or rales.)
GI: Soft and Non Distended
Neurology: Awake, Alert and Oriented
Skin: Warm
Labs/Micro/Reports
Lab Data
09/01/24 04:11
09/01/24 04:11
Microbiology
08/28/24 08:55 Blood/Venous Blood Culture - Preliminary
No Growth in 4 days- Final report to follow
08/28/24 08:46 Blood/Venous Blood Culture - Preliminary
No Growth in 4 days- Final report to follow
08/28/24 13:27 Sputum Respiratory Culture - Final
Usual Respiratory Abeba
08/28/24 13:27 Sputum Gram Stain - Final
08/29/24 21:59 Urine Legionella Urinary Antigen - Final
Negative for Legionella pneumophila Serogroup 1 antigen.
A negative result does not rule out the possiblity of
Legionella infection due to other serogroups or species of
Legionella. Clinical correlation is recommended.
08/29/24 21:59 Urine Streptococcus pneumoniae Antigen (M - Final
Negative for Streptococcus pneumoniae antigen.
A negative result does not exclude infection with
Streptococcus pneumoniae. Clinical correlation is
recommended.
08/29/24 14:11 Nasalpharynx Influenza Type A (PCR) - Final
Not Detected
08/29/24 14:11 Nasalpharynx Influenza Type A (H1) (PCR) - Final
Not Detected
08/29/24 14:11 Nasalpharynx Influenza Type A (H3) (PCR) - Final
Not Detected
08/29/24 14:11 Nasalpharynx Influenza Type B (PCR) - Final
Not Detected
08/29/24 14:11 Nasalpharynx Resp Syncytial Virus Type A (PCR) - Final
Not Detected
08/29/24 14:11 Nasalpharynx Resp Syncytial Virus Type B (PCR) - Final
Not Detected
08/29/24 14:11 Nasalpharynx Adenovirus DNA (PCR) - Final
Not Detected
08/29/24 14:11 Nasalpharynx Human Metapneumovirus (PCR) - Final
Not Detected
08/29/24 14:11 Nasalpharynx Parainfluenza Virus Type 1 (PCR) - Final
Not Detected
08/29/24 14:11 Nasalpharynx Parainfluenza Virus Type 2 (PCR) - Final
Not Detected
08/29/24 14:11 Nasalpharynx Parainfluenza Virus Type 3 (PCR) - Final
Not Detected
08/29/24 14:11 Nasalpharynx Parainfluenza Virus Type 4 - Final
Not Detected
08/29/24 14:11 Nasalpharynx Rhinovirus (PCR) - Final
--- NOTE | 2024-09-01 13:55 | W.PN.HOSP.TC ---
Today's Communication/Plan
-
wean o2
pulmonary toilet
abx, completing 5 days of azithro
procal neg, dc ceftriaxone
Assessment / Plan
Assessment / Plan
Physical Exam
General: No pallor, cyanosis, or jaundice.
HEENT: Throat clear. PERRLA Normocephalic atraumatic
NECK: Supple. No carotid Bruits
RESPIRATORY: clear to auscultation b/l
CVS: S1, S2 sinus tachycardia. No murmur, rub or gallop.
ABDOMEN: Soft, non-tender. No distension. BS+/normal.
EXTREMITIES: No peripheral cyanosis, no edema lower ext's. No significant Calf tenderness
[employer]: AOx3 conversant coherent
IMPRESSION:
69M HTN, HLD, PAD, COPD former smoker p/w 1 week of increased cough, decreased appetite, wheezing, SOB, exertional dyspnea, orthopnea and leg swelling. Denies fever chills calf tenderness. Hypoxic to 86% on room air during ED evaluation. Patient
required High Flow to maintain adequate saturation 90s. Denied chest pain fever chills nausea vomiting diarrhea constipation. Endorses having a roommate who smokes. AOx3 conversant coherent. Patient afebrile but sinus tachy with wbc 23. No
significant Lactic acidosis or hypotension. CXR suggestive multifocal pneumonia.
PLAN:
#Sepsis secondary to multifocal pneumonia
#Viral pneumonia
#Acute hypoxic respiratory failure
#COPD exacerbation
#Possible Sarcoidosis
#Viral Pneumonia Rhinovirus positive possible superimposed bacterial pneumonia as well (strep legionella neg)
[facility] admit transferred to ICU closer monitoring d/t worsening oxygen requirement max high flow w NRB, patient since weaned down to 2L stable for downgrade to Tele
Pulm eval appreciated
Received empiric and Zosyn in ED, abx continued w ceftriaxone azithromycin
sputum culture normal respiratory Abeba
blood cultures NGTD
Leukocytosis trending down despite IV steroids
ID eval appreciated
wean O2 supplementation as tolerated
IV decadron 4mg Q8H,�p.o. prednisone, 30 mg for 5 days
Duoneb R QID and prn
mucinex, prn robitussin
incentive spirometer, acapella
CT chest noted no PE, diffuse pna vs sarcoidosis vs lymphoma (close follow up CT recommended), T8 compression fx also noted age indeterminate
ECHO appreciated EF 60-65% no significant valve abn's
Procalcitonin
Wean O2 as tolerated, goal greater than 90%
#HTN
cont home lisinopril with holding parameters
monitor and titrate antihypertensive regimen as necessary
possible exacerbation by steroids, may improve with eventual taper
#HLD
cont home statin
#PAD
pain control
cont home muscle relaxant
PT/OT appreciated SNF rehab
dvt ppx Lovenox
gi ppx protonix
Full Code
Anticipated Discharge: 24 - 48 hours
Subjective/Interval History
-
Date of Service: September 01, 2024
Required to increase oxygen level to 8 L this morning, otherwise patient feels well
Objective Data
-
Labs:
Laboratory Results
09/01/24
04:11
WBC 10.9 H
Hgb 12.4 L
Hct 37.5 L
Plt Count 604 H
Sodium 137
Potassium 5.2 H
Chloride 103
Carbon Dioxide 29
BUN 37 H
Creatinine 0.8
Glucose 128 H
Calcium 8.8
Vital Signs:
Vital Signs
Temp Pulse Resp BP Pulse Ox
98.3 F 81 22 136/97 93
09/01/24 11:16 09/01/24 12:01 09/01/24 10:00 09/01/24 10:00 09/01/24 12:01
I&O
08/31/24 09/01/24 09/02/24
06:59 06:59 06:59
Intake Total 1760 / 1760 1030 / 1030 480 / 480
Output Total 950 / 950 1650 / 1650 550 / 550
Balance 810 / 810 -620 / -620 -70 / -70
Review of Systems
-
History Source: Patient
All other systems: Not reviewed unless documented
Data Reviewed
-
Diagnostic Radiology: Report Reviewed by me
[2024-09-01] MEDS: STERILE WATER FOR INJECTION IV (14:21)
--- NOTE | 2024-09-01 16:26 | CM ---
B/L PNA, titrate O2, D/C IV/AB, D/C IV steroids to PO. Discharge POC: TBD based on need for HH RN and possible home O2.
[2024-09-01] MEDS: LOVENOX 40 MG SC (17:19)
--- NOTE | 2024-09-01 18:11 | PTCARENOTE ---
report called to 3 kathryn RN
[2024-09-01] MEDS: LIPITOR 10 MG PO (21:19)
[2024-09-02] MEDS: ULTRAM 25 MG PO (03:25)
--- NOTE | 2024-09-02 03:28 | PTCARENOTE ---
Found pt sitting up in bed, moaning loudly, crying out in pain, with 4L NC out of his nose. When asked what was wrong, pt stated his L shoulder hurt. When asked if we could put the oxygen back on, pt yelled 'I don't give a shit about the oxygen, I'm
in pain!'. PRN tramadol given, see MAR. Pt eventually put 4L NC back on.
[2024-09-02 03:54] VITALS: BP 145/88
[2024-09-02] MEDS: TYLENOL 1000 MG PO (04:55)
[2024-09-02 06:41] LABS: Blood Urea Nitrogen 36 mg/dl (9-20); Calcium 8.9 mg/dl (8.4-10.2); Carbon Dioxide 28 mmol/L (22-30); Chloride 104 mmol/L (98-107); Estimated Creatinine Clearance 104 ml/min; Glucose 91 mg/dl (70-99); Magnesium 1.9 mg/dl (1.6-2.3); Phosphorus 4.6 mg/dl (2.5-4.5); Potassium 5.1 mmol/L (3.5-5.1); Sodium 136 mmol/L (135-145); eGFR > 60.00
[2024-09-02 06:58] LABS: % Basophils 0.3 % (0-2); % Eosinophils 0.5 % (0-6); % Immature Granulocytes 1.7 % (0-0.5); % Lymphocytes 27.7 % (20.5-51.1); % Monocytes 8.3 % (1.7-9.3); % Neutrophils 61.5 % (42.2-75.2); Absolute Eosinophils 0.1 10^3/uL (0-0.7); Absolute Immature Granulocytes 0.2 10^3/uL (0-0.05); Absolute Lymphocytes 3.2 10^3/uL (1.2-3.4); Absolute Neutrophils 7.1 10^3/uL (1.4-6.5); Hematocrit 37.9 % (39.0-52.0); Hemoglobin 12.4 g/dL (13.0-18.0); Mean Corp Hgb Conc. 32.7 g/dL (33.0-37.0); Mean Corpuscular Volume 88.6 fL (80.0-94.0); Nucleated Red Blood Cells % 0 % (-); Red Blood Cell Count 4.28 10^6/uL (4.70-6.10); Red Cell Dist. Width 13.5 % (11.5-14.5); White Blood Cell Count 11.5 10^3/uL (4.8-10.8)
[2024-09-02 07:30] LABS: Mean Platelet Volume 10.3 fL (7.4-10.4); Platelet Count 525 10^3/uL (130-400)
[2024-09-02 07:36] VITALS: BP 165/95
[2024-09-02] MEDS: SPIRIVA RESPIMAT 2.5 MCG 2 PUFF INH (08:25)
[2024-09-02] MEDS: VENTOLIN NEBULES 2.5 MG INH ×2 (08:25→19:50)
[2024-09-02] MEDS: PEPCID 20 MG PO (09:08)
[2024-09-02] MEDS: VITAMIN D3 (cholecalciferol) 25 MCG PO (09:08)
[2024-09-02] MEDS: DELTASONE 30 MG PO (09:08)
[2024-09-02] MEDS: ASPIR LOW (ENTERIC COATED) 81 MG PO (09:08)
[2024-09-02] MEDS: METHOCARBAMOL 750 MG PO ×4 (09:09→22:29)
[2024-09-02] MEDS: MUCINEX 600 MG PO ×2 (09:09→20:40)
[2024-09-02] MEDS: ZESTRIL PO (09:10)
[2024-09-02 11:13] VITALS: BP 138/85
--- NOTE | 2024-09-02 12:28 | W.PN.PUL3 ---
Today's Communication / Plan
-
Observe off antibiotics
Wean off FiO2, home oxygen assessment closer to discharge
Continue inhalers
Continue prednisone for additional 4 days
Increase mobility
Incentive spirometry
Eventual radiographic follow-up
Will follow
Assessment
-
69-year-old male with history of COPD, pneumonia, 120+ pack-year history of smoking quit presents with 1 week of increased shortness of breath, chest congestion found to be hypoxic requiring high flow oxygen. Imaging suggest extensive bilateral
pneumonia. We are asked to comment on pulmonary process
Acute hypoxic respiratory failure due to viral pneumonia (RVP panel positive for rhinovirus)
Bilateral pneumonia/pneumonitis
Bronchiolitis, basilar predominant
Chest congestion, cough, shortness of breath x 1 week
Leukocytosis
Mild pulm hypertension, PA pressure 45
Normal biventricular function, per echo 08/28/2024
Conditions present prior to admission
Hypertension/hyperlipidemia
125+ pack-year history of smoking, quit 2017
Family history of emphysema, son at age 58
Assessment and plan:
#1. Acute hypoxic respiratory failure with bilateral pneumonia.
- Hypoxia improving, patient off high flow now. Down to 4 L nasal cannula.
- Viral panel positive for rhinovirus
- Follow-up chest x-ray - 09/01, improving
- Afebrile now, cultures otherwise have stayed negative. Hemodynamically stable, not needing any pressors.
- Patient completed 5 days of azithromycin
- Negative procalcitonin 09/01/2024- discontinued ceftriaxone
- ID service on case
#2. [id number] smoking history, with suspected underlying COPD.
- Continue Spiriva
- Continue albuterol as needed
- Continue prednisone 30 mg daily for 5 days and then discontinue
- Patient needs outpatient follow-up with pulmonary service with pulmonary function testing and 6-minute walk test etc.
#3. Mediastinal and hilar lymphadenopathy.
- Suspect this is reactive to current infection
- However other diseases including sarcoidosis, chronic granulomatous infections also in differential diagnosis.
- Patient will need follow-up imaging in 8 to 12 weeks as outpatient and if lymphadenopathy is persistent, might need [id number]-TBNA
#4. Mild pulmonary hypertension.
- Echocardiogram suggests pulmonary artery systolic pressure around 40-45. RV function is normal as well as RV size normal.
- Likely group 3 with underlying COPD
- Further workup as outpatient
- Continue O2 support to keep saturations above 90%
DVT prophylaxis: Enoxaparin
GI prophylaxis: Pepcid
Pulmonary service will continue to follow along
Total time spent today was 36 minutes for this encounter. Time includes reviewing laboratory test/imaging results, reviewing pertinent medical records, obtaining and reviewing medical history, performing an appropriate exam, ordering medications,
tests and procedures. Time also includes documentation of this encounter, coordinating patient care and communicating with other healthcare professionals. Total time does not include separately billed tests performed on this date of service.
Data
CT Chest 07/2024: Evaluation for pulmonary emboli limited because of respiratory artifact. No obvious discrete filling defects in the pulmonary arterial system to suggest pulmonary emboli.
Severe pulmonary parenchymal disease along with mediastinal and right hilar adenopathy. Most likely diagnosis is sarcoidosis. Lymphoma could give a similar constellation of findings. Other possibility is diffuse pneumonia with reactive mediastinal
and right hilar adenopathy. Consider treating for pneumonia and then performing a close follow-up chest CT for reevaluation.
20% compression fracture of T8 vertebral body. This is of uncertain age.
ECHO 07/2024: 1. Mild concentric left ventricular hypertrophy with preserved systolic
function, ejection fraction 60-65%
2. Normal mitral valve with normal left atrium
3. Mild aortic sclerosis without stenosis or regurgitation
4. Normal right heart with mild pulmonary hypertension, 40-45 mmHg systolic
Subjective Data
-
Date of Service:
Date of Service: September 02, 2024
Chief Complaint: Pulmonary Follow Up (Hypoxemic respiratory failure-pneumonia)
Subjective:
No new complaints
Still with some shortness of breath with activity clinically feels better
Remains on supplemental oxygen
Denies hemoptysis
Review of Systems
General: Fever (n)
Cardiopulmonary: Dyspnea (Improving), Dyspnea on Exertion, Sputum Production (n), Wheezing (n) and Chest Pain (n)
GI: Abdominal Pain (n)
Objective Data
Data Reviewed
Vital Signs / I&O / Oxygen:
Vital Signs
Temp Pulse Resp BP Pulse Ox
97.5 F 74 16 138/85 95
09/02/24 11:13 09/02/24 11:13 09/02/24 11:13 09/02/24 11:13 09/02/24 11:35
Intake and Output
09/01/24 09/02/24 09/03/24
06:59 06:59 06:59
Intake Total 1030 / 1030 1080 / 1080
Output Total 1650 / 1650 1999 / 2000
Balance -620 / -620 -920 / -920
SaO2 95
Nasal Cannula flow liters per 4
minute
Physical Exam
General: Comfortable
HEENT: Normocephalic
Cardiovascular: S1-S2
Respiratory: Other (Decreased bilateral air entry, prolonged expiration. No active wheezing, crackles or rales.)
GI: Soft and Non Distended
Neurology: Awake, Alert and Oriented
Skin: Warm
Labs/Micro/Reports
Lab Data
09/02/24 05:39
09/02/24 05:39
Microbiology
08/28/24 08:55 Blood/Venous Blood Culture - Final
No Growth - Final Report
08/28/24 08:46 Blood/Venous Blood Culture - Final
No Growth - Final Report
08/28/24 13:27 Sputum Respiratory Culture - Final
Usual Respiratory Abeba
08/28/24 13:27 Sputum Gram Stain - Final
08/29/24 21:59 Urine Legionella Urinary Antigen - Final
Negative for Legionella pneumophila Serogroup 1 antigen.
A negative result does not rule out the possiblity of
Legionella infection due to other serogroups or species of
Legionella. Clinical correlation is recommended.
08/29/24 21:59 Urine Streptococcus pneumoniae Antigen (M - Final
Negative for Streptococcus pneumoniae antigen.
A negative result does not exclude infection with
Streptococcus pneumoniae. Clinical correlation is
recommended.
--- NOTE | 2024-09-02 13:01 | W.PN.HOSP.TC ---
Today's Communication/Plan
-
wean o2
pulmonary toilet
abx, completing 5 days of azithro
steroids
Assessment / Plan
Assessment / Plan
Physical Exam
General: No pallor, cyanosis, or jaundice.
HEENT: Throat clear. PERRLA Normocephalic atraumatic
NECK: Supple. No carotid Bruits
RESPIRATORY: clear to auscultation b/l
CVS: S1, S2 sinus tachycardia. No murmur, rub or gallop.
ABDOMEN: Soft, non-tender. No distension. BS+/normal.
EXTREMITIES: No peripheral cyanosis, no edema lower ext's. No significant Calf tenderness
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
IMPRESSION:
69M HTN, HLD, PAD, COPD former smoker p/w 1 week of increased cough, decreased appetite, wheezing, SOB, exertional dyspnea, orthopnea and leg swelling. Denies fever chills calf tenderness. Hypoxic to 86% on room air during ED evaluation. Patient
required High Flow to maintain adequate saturation 90s. Denied chest pain fever chills nausea vomiting diarrhea constipation. Endorses having a roommate who smokes. AOx3 conversant coherent. Patient afebrile but sinus tachy with wbc 23. No
significant Lactic acidosis or hypotension. CXR suggestive multifocal pneumonia.
PLAN:
#Sepsis secondary to multifocal pneumonia
#Viral pneumonia
#Acute hypoxic respiratory failure
#COPD exacerbation
#Possible Sarcoidosis
#Viral Pneumonia Rhinovirus positive possible superimposed bacterial pneumonia as well (strep legionella neg)
IMU admit transferred to ICU closer monitoring d/t worsening oxygen requirement max high flow w NRB, patient since weaned down to 2L stable for downgrade to Tele
Pulm eval appreciated
Received empiric and Zosyn in ED, abx continued w ceftriaxone azithromycin
sputum culture normal respiratory Abeba
blood cultures NGTD
Leukocytosis trending down despite IV steroids
ID eval appreciated
wean O2 supplementation as tolerated
IV decadron 4mg Q8H,�p.o. prednisone, 30 mg for 5 days
Duoneb R QID and prn
mucinex, prn robitussin
incentive spirometer, acapella
CT chest noted no PE, diffuse pna vs sarcoidosis vs lymphoma (close follow up CT recommended), T8 compression fx also noted age indeterminate
ECHO appreciated EF 60-65% no significant valve abn's
Procalcitonin neg - dc abx
Wean O2 as tolerated, goal greater than 90%
#HTN
cont home lisinopril with holding parameters
monitor and titrate antihypertensive regimen as necessary
possible exacerbation by steroids, may improve with eventual taper
#HLD
cont home statin
#PAD
pain control
cont home muscle relaxant
PT/OT appreciated SNF rehab
dvt ppx Lovenox
gi ppx protonix
Full Code
Anticipated Discharge: 24 - 48 hours
Subjective/Interval History
-
Date of Service: September 02, 2024
No acute events, on 4 L.
Objective Data
-
Labs:
Laboratory Results
09/02/24
05:39
WBC 11.5 H
Hgb 12.4 L
Hct 37.9 L
Plt Count 525 H
Sodium 136
Potassium 5.1
Chloride 104
Carbon Dioxide 28
BUN 36 H
Creatinine 0.8
Glucose 91
Calcium 8.9
Vital Signs:
Vital Signs
Temp Pulse Resp BP Pulse Ox
97.5 F 74 16 138/85 95
09/02/24 11:13 09/02/24 11:13 09/02/24 11:13 09/02/24 11:13 09/02/24 11:35
I&O
09/01/24 09/02/24 09/03/24
06:59 06:59 06:59
Intake Total 1030 / 1030 1080 / 1080
Output Total 1650 / 1650 1999
Balance -620 / -620 -920 / -920
Review of Systems
-
History Source: Patient
All other systems: Not reviewed unless documented
Data Reviewed
-
Diagnostic Radiology: Report Reviewed by me
[2024-09-02 14:53] VITALS: BP 137/80
--- NOTE | 2024-09-02 15:57 | W.PN.ID1 ---
Date of Service
Date of Service: September 02, 2024
Today's Communication
Observe off antibiotics.
Assessment / Plan
B/L PNA
Hypoxemic respiratory insufficiency; now on mid flow O2
Leukocytosis
Thrombocytosis
Exacerbation COPD
Hx HTN
HLD
PAD
Recommendations:
Respiratory culture: usual resp raghu
blood cultures neg
Legionella and streptococcal urinary antigens neg.
Respiratory viral panel positive for rhinovirus.
- Rhinovirus often causes upper respiratory tract disease, but can cause bilateral pneumonia in select patients.
Patient completing 5 days of Azithromycin.
Procalcitonin negative, ceftriaxone discontinued.
Monitor white count and temperature curve.
Continue steroid as per Pulm. Follow O2 sats. Follow-up chest x-ray in 4 to 6 weeks.
Will continue to follow clinically.
����������������������������������������������������������
Chief Complaint
-: Pneumonia
Subjective / Review of Systems
Review of Systems: No Fever, No Chills, No Cough and No Sputum Production
Vital Signs / Physical Exam
Vital Signs
Vital Signs
Temp Pulse Resp BP Pulse Ox
97.5 F 84 16 137/80 95
09/02/24 14:53 09/02/24 14:53 09/02/24 14:53 09/02/24 14:53 09/02/24 14:53
Physical Exam
Constitutional: No Acute Distress
Cardiovascular: Regular Rate and S1/S2
Pulmonary: Clear
Gastrointestinal: Soft, Non Tender, Non Distended and Normal Bowel Sounds
Extremities: Negative Edema
Neurological: AO x 3
Objective Data
Lab Data
Lab Results
09/02/24 05:39
09/02/24 05:39
PT 14.6 Sec (11.4-14.6) 08/29/24 12:48
INR 1.11 08/29/24 12:48
APTT 31.0 Sec (23.4-35.0) 08/29/24 12:48
Estimated Creat Clear 104 ml/min 09/02/24 05:39
Lactic Acid 1.4 mmol/L (0.7-2.0) 08/28/24 08:38
Total Bilirubin 0.8 mg/dl (0.2-1.3) 08/28/24 08:22
AST 41 U/L (17-59) 08/28/24 08:22
ALT 46 U/L (0-50) 08/28/24 08:22
Alkaline Phosphatase 119 U/L (38-126) 08/28/24 08:22
Most recent labs reviewed.
Micro Results:
08/28/24 08:55 Blood Culture - Final
Blood/Venous No Growth - Final Report
08/28/24 08:46 Blood Culture - Final
Blood/Venous No Growth - Final Report
08/28/24 13:27 Respiratory Culture - Final
Sputum Usual Respiratory Raghu
Gram Stain - Final
08/29/24 21:59 Legionella Urinary Antigen - Final
Urine Negative for Legionella pneumophila Serogroup 1 antigen.
A negative result does not rule out the possiblity of
Legionella infection due to other serogroups or species of
Legionella. Clinical correlation is recommended.
Streptococcus pneumoniae Antigen (M - Final
Negative for Streptococcus pneumoniae antigen.
A negative result does not exclude infection with
Streptococcus pneumoniae. Clinical correlation is
recommended.
08/29/24 14:11 Influenza Type A (PCR) - Final
Nasalpharynx Not Detected
Influenza Type A (H1) (PCR) - Final
Not Detected
Influenza Type A (H3) (PCR) - Final
Not Detected
Influenza Type B (PCR) - Final
Not Detected
Resp Syncytial Virus Type A (PCR) - Final
Not Detected
Resp Syncytial Virus Type B (PCR) - Final
Not Detected
Adenovirus DNA (PCR) - Final
Not Detected
Human Metapneumovirus (PCR) - Final
Not Detected
Parainfluenza Virus Type 1 (PCR) - Final
Not Detected
Parainfluenza Virus Type 2 (PCR) - Final
Not Detected
Parainfluenza Virus Type 3 (PCR) - Final
Not Detected
Parainfluenza Virus Type 4 - Final
Not Detected
Rhinovirus (PCR) - Final
08/28/24 08:29 Influenza Types A & B (ALKA) - Final
Nasal Swab Negative for Influenza A & B, NAAT
Negative results must be combined with clinical observations
and patient history.
Nucleic Acid Amplification test (NAAT)performed on the
[employer] platform.
Imaging:
08/29/2024 CXR (portable): Severe bilateral endobronchial disease throughout the mid and lower lungs with small airspace consolidations in the right lower lobe and lingula unchanged from prior.
08/28/2024 CT chest (PE study): No pulmonary embolism noted. There is severe pulmonary parenchymal disease along with mediastinal and right hilar adenopathy raising suspicion of sarcoidosis versus pneumonia. Please see full dictation for additional
detail. Film personally viewed.
--- NOTE | 2024-09-02 16:13 | CM ---
Patient seen at bedside, no change in plan for home. Patient continues on O2, watch for home O2 needs. Patient may benefit from home O2 assessment. CM will continue to follow for discharge planning needs.
Plan; home with VN watch for home O2 needs.
[2024-09-02] MEDS: LOVENOX 40 MG SC (17:28)
[2024-09-02 19:49] VITALS: BP 153/100
[2024-09-02] MEDS: LIPITOR 10 MG PO (22:28)
[2024-09-02 23:44] VITALS: BP 145/94
[2024-09-03] MEDS: TYLENOL 1000 MG PO (02:48)
[2024-09-03 03:10] VITALS: BP 143/89
[2024-09-03 07:00] VITALS: BP 145/90
[2024-09-03] MEDS: DELTASONE 30 MG PO (08:05)
[2024-09-03] MEDS: VITAMIN D3 (cholecalciferol) 25 MCG PO (08:05)
[2024-09-03] MEDS: PEPCID 20 MG PO (08:05)
[2024-09-03] MEDS: MUCINEX 600 MG PO (08:05)
[2024-09-03] MEDS: METHOCARBAMOL 750 MG PO (08:05)
[2024-09-03] MEDS: ASPIR LOW (ENTERIC COATED) 81 MG PO (08:05)
[2024-09-03 08:15] LABS: % Basophils 0.6 % (0-2); % Eosinophils 0.5 % (0-6); % Lymphocytes 31.3 % (20.5-51.1); % Monocytes 7.2 % (1.7-9.3); % Neutrophils 58.4 % (42.2-75.2); Absolute Basophils 0.1 10^3/uL (0-0.2); Absolute Eosinophils 0.1 10^3/uL (0-0.7); Absolute Immature Granulocytes 0.2 10^3/uL (0-0.05); Absolute Lymphocytes 3.5 10^3/uL (1.2-3.4); Absolute Monocytes 0.8 10^3/uL (0.1-0.6); Absolute Neutrophils 6.5 10^3/uL (1.4-6.5); Hemoglobin 13.5 g/dL (13.0-18.0); Mean Corp Hgb Conc. 32.9 g/dL (33.0-37.0); Mean Corpuscular Hgb 29.3 pg (27.0-31.0); Mean Corpuscular Volume 89.1 fL (80.0-94.0); Nucleated Red Blood Cells % 0 % (-); Platelet Count 663 10^3/uL (130-400); Red Cell Dist. Width 13.5 % (11.5-14.5)
[2024-09-03] MEDS: VENTOLIN NEBULES 2.5 MG INH (08:24)
[2024-09-03] MEDS: SPIRIVA RESPIMAT 2.5 MCG 2 PUFF INH (08:24)
[2024-09-03 09:00] LABS: Blood Urea Nitrogen 33 mg/dl (9-20); Calcium 9.2 mg/dl (8.4-10.2); Carbon Dioxide 25 mmol/L (22-30); Chloride 103 mmol/L (98-107); Estimated Creatinine Clearance 93 ml/min; Glucose 79 mg/dl (70-99); Phosphorus 4.9 mg/dl (2.5-4.5); Potassium 5.3 mmol/L (3.5-5.1); Sodium 136 mmol/L (135-145); eGFR > 60.00
[2024-09-03] MEDS: ZESTRIL PO (09:04)
[2024-09-03 11:05] VITALS: BP 124/79
--- NOTE | 2024-09-03 11:09 | W.PN.ID1 ---
Date of Service
Date of Service: September 03, 2024
Today's Communication
Observe off antibiotics.
Assessment / Plan
B/L PNA
Hypoxemic respiratory insufficiency; now on mid flow O2
Leukocytosis
Thrombocytosis
Exacerbation COPD
Hx HTN
HLD
PAD
Recommendations:
Respiratory culture: usual resp raghu
blood cultures neg
Legionella and streptococcal urinary antigens neg.
Respiratory viral panel positive for rhinovirus.
- Rhinovirus often causes upper respiratory tract disease, but can cause bilateral pneumonia in select patients.
Patient completed 5 days of Azithromycin.
Procalcitonin negative, ceftriaxone discontinued.
Monitor white count and temperature curve.
Continue steroid as per Pulm. Follow O2 sats. Follow-up chest x-ray in 4 to 6 weeks.
Will continue to follow clinically.
����������������������������������������������������������
Chief Complaint
-: Pneumonia
Subjective / Review of Systems
Review of Systems: No Fever and No Chills
Vital Signs / Physical Exam
Vital Signs
Vital Signs
Temp Pulse Resp BP Pulse Ox
97.6 F 83 18 124/79 92
09/03/24 11:05 09/03/24 11:05 09/03/24 11:05 09/03/24 11:05 09/03/24 11:05
Physical Exam
Constitutional: No Acute Distress
Cardiovascular: Regular Rate and S1/S2
Pulmonary: Clear
Gastrointestinal: Soft, Non Tender, Non Distended and Normal Bowel Sounds
Extremities: Negative Edema
Neurological: AO x 3
Objective Data
Lab Data
Lab Results
09/03/24 07:13
09/03/24 07:13
PT 14.6 Sec (11.4-14.6) 08/29/24 12:48
INR 1.11 08/29/24 12:48
APTT 31.0 Sec (23.4-35.0) 08/29/24 12:48
Estimated Creat Clear 93 ml/min 09/03/24 07:13
Lactic Acid 1.4 mmol/L (0.7-2.0) 08/28/24 08:38
Total Bilirubin 0.8 mg/dl (0.2-1.3) 08/28/24 08:22
AST 41 U/L (17-59) 08/28/24 08:22
ALT 46 U/L (0-50) 08/28/24 08:22
Alkaline Phosphatase 119 U/L (38-126) 08/28/24 08:22
Most recent labs reviewed.
Micro Results:
08/28/24 08:55 Blood Culture - Final
Blood/Venous No Growth - Final Report
08/28/24 08:46 Blood Culture - Final
Blood/Venous No Growth - Final Report
08/28/24 13:27 Respiratory Culture - Final
Sputum Usual Respiratory Raghu
Gram Stain - Final
08/29/24 21:59 Legionella Urinary Antigen - Final
Urine Negative for Legionella pneumophila Serogroup 1 antigen.
A negative result does not rule out the possiblity of
Legionella infection due to other serogroups or species of
Legionella. Clinical correlation is recommended.
Streptococcus pneumoniae Antigen (M - Final
Negative for Streptococcus pneumoniae antigen.
A negative result does not exclude infection with
Streptococcus pneumoniae. Clinical correlation is
recommended.
08/29/24 14:11 Influenza Type A (PCR) - Final
Nasalpharynx Not Detected
Influenza Type A (H1) (PCR) - Final
Not Detected
Influenza Type A (H3) (PCR) - Final
Not Detected
Influenza Type B (PCR) - Final
Not Detected
Resp Syncytial Virus Type A (PCR) - Final
Not Detected
Resp Syncytial Virus Type B (PCR) - Final
Not Detected
Adenovirus DNA (PCR) - Final
Not Detected
Human Metapneumovirus (PCR) - Final
Not Detected
Parainfluenza Virus Type 1 (PCR) - Final
Not Detected
Parainfluenza Virus Type 2 (PCR) - Final
Not Detected
Parainfluenza Virus Type 3 (PCR) - Final
Not Detected
Parainfluenza Virus Type 4 - Final
Not Detected
Rhinovirus (PCR) - Final
08/28/24 08:29 Influenza Types A & B (ALKA) - Final
Nasal Swab Negative for Influenza A & B, NAAT
Negative results must be combined with clinical observations
and patient history.
Nucleic Acid Amplification test (NAAT)performed on the
[employer] platform.
Imaging:
08/29/2024 CXR (portable): Severe bilateral endobronchial disease throughout the mid and lower lungs with small airspace consolidations in the right lower lobe and lingula unchanged from prior.
08/28/2024 CT chest (PE study): No pulmonary embolism noted. There is severe pulmonary parenchymal disease along with mediastinal and right hilar adenopathy raising suspicion of sarcoidosis versus pneumonia. Please see full dictation for additional
detail. Film personally viewed.
--- NOTE | 2024-09-03 12:02 | W.PN.HOSP.TC ---
Addendum entered and electronically signed by Ayo Jaimes MD 09/03/24 15:14:
[id number]
Original Note:
Today's Communication/Plan
-
Prednisone course
Stop lisinopril, monitor BMP in 3 to 5 days with PCP
Repeat imaging with pulmonary outpatient to monitor mediastinal and hilar lymphadenopathy
6MWT and PFTs outpatient
F/u PCP and Pulmonary outpatient
Assessment / Plan
Assessment / Plan
Physical Exam
General: No pallor, cyanosis, or jaundice.
HEENT: Throat clear. PERRLA Normocephalic atraumatic
NECK: Supple. No carotid Bruits
RESPIRATORY: clear to auscultation b/l
CVS: S1, S2 sinus tachycardia. No murmur, rub or gallop.
ABDOMEN: Soft, non-tender. No distension. BS+/normal.
EXTREMITIES: No peripheral cyanosis, no edema lower ext's. No significant Calf tenderness
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
IMPRESSION:
69M HTN, HLD, PAD, COPD former smoker p/w 1 week of increased cough, decreased appetite, wheezing, SOB, exertional dyspnea, orthopnea and leg swelling. Denies fever chills calf tenderness. Hypoxic to 86% on room air during ED evaluation. Patient
required High Flow to maintain adequate saturation 90s. Denied chest pain fever chills nausea vomiting diarrhea constipation. Endorses having a roommate who smokes. AOx3 conversant coherent. Patient afebrile but sinus tachy with wbc 23. No
significant Lactic acidosis or hypotension. CXR suggestive multifocal pneumonia.
PLAN:
#Sepsis secondary to multifocal pneumonia
#Viral pneumonia
#Acute hypoxic respiratory failure
#COPD exacerbation
#Possible Sarcoidosis
#Viral Pneumonia Rhinovirus positive possible superimposed bacterial pneumonia as well (strep legionella neg)
IMU admit transferred to ICU closer monitoring d/t worsening oxygen requirement max high flow w NRB, patient since weaned down to 2L stable for downgrade to Tele
Pulm eval appreciated
Received empiric and Zosyn in ED, abx continued w ceftriaxone azithromycin
sputum culture normal respiratory Abeba
blood cultures NGTD
Leukocytosis trending down despite IV steroids
ID eval appreciated
wean O2 supplementation as tolerated
IV decadron 4mg Q8H,�p.o. prednisone, 30 mg for 5 days (day 3)
Duoneb R QID and prn
mucinex, prn robitussin
incentive spirometer, acapella
CT chest noted no PE, diffuse pna vs sarcoidosis vs lymphoma (close follow up CT recommended), T8 compression fx also noted age indeterminate
ECHO appreciated EF 60-65% no significant valve abn's
Procalcitonin neg - dc abx
Wean O2 as tolerated, goal greater than 90% - ambulatory pulse ox- will dc on home o2 with weaning outpatient
F/u imaging outpatient
PFTs, 6MWT outpt
#Mediastinal and hilar lymphadenopathy
F/u imaging outpatient with pulmonary
#HTN
Hold lisinopril due to hyperkalemia
monitor and titrate antihypertensive regimen as necessary outpatient
possible exacerbation by steroids, may improve with eventual taper
#Hyperkalemia, mild
� Possibly exacerbated by steroids and lisinopril
� Hold lisinopril
� Lokelma today
� Follow-up BMP outpatient
#HLD
cont home statin
#PAD
pain control
cont home muscle relaxant
PT/OT appreciated SNF rehab
dvt ppx Lovenox
gi ppx protonix
Full Code
More than 30 minutes spent in discharge including
Final examination of the patient
Summarizing hospital stay
Instructions for continuing care to all relevant caregivers
Preparation of discharge records, prescriptions, and referral forms
Total time spent (in minutes): 36
Anticipated Discharge: Today
Subjective/Interval History
-
Date of Service: September 03, 2024
no acute events, weaned to 2L
Objective Data
-
Labs:
Laboratory Results
09/03/24
07:13
WBC 11.0 H
Hgb 13.5
Hct 41.0
Plt Count 663 H D
Sodium 136
Potassium 5.3 H
Chloride 103
Carbon Dioxide 25
BUN 33 H
Creatinine 0.9
Glucose 79
Calcium 9.2
Vital Signs:
Vital Signs
Temp Pulse Resp BP Pulse Ox
97.6 F 83 18 124/79 92
09/03/24 11:05 09/03/24 11:05 09/03/24 11:05 09/03/24 11:05 09/03/24 11:05
I&O
09/02/24 09/03/24 09/04/24
06:59 06:59 06:59
Intake Total 1080 / 1080 840 / 840
Output Total 1999 1475 / 1475
Balance -920 / -920 -635 / -635
Review of Systems
-
History Source: Patient
All other systems: Not reviewed unless documented
Data Reviewed
-
Diagnostic Radiology: Report Reviewed by me
[2024-09-03] MEDS: LOKELMA 10 GRAM PO (12:04)
--- NOTE | 2024-09-03 12:07 | W.DS.TRANS ---
DC Summary - Database Technician
-
Discharge Instructions:
Discharge Diagnosis/Procedures #Sepsis secondary to multifocal pneumonia
#Viral pneumonia
#Acute hypoxic respiratory failure
#COPD exacerbation
#Viral Pneumonia Rhinovirus positive possible
superimposed bacterial pneumonia
#Rhinovirus
Diet Low Cholesterol,Low Fat
Activity As tolerated
Blood Work cbc and bmp in 3-5 days (monitor WBC and
potassium ) - now off lisinopril
Instructions:
Stand-Alone Forms:
Changes to Home Medications: Yes
Discharge Medications:
DC Medications w/original date entered in [facility]
atorvastatin 10 mg tablet 10 mg PO HS High cholesterol 08/28/20
carisoprodol 350 mg tablet 350 mg PO TID Muscle spasms 08/28/20
acetaminophen 650 mg tablet,extended release (Tylenol Arthritis Pain) 1,300 mg PO [id number] PRN mild pain 08/28/24
albuterol 90 mcg-budesonide 80 mcg/actuation HFA aerosol inhaler (Airsupra) 2 inh inhalation R [id number] PRN sob 08/28/24
aspirin 81 mg tablet,delayed release 81 mg PO DAILY Blood Clot Prevention/Tx 08/28/24
cholecalciferol (vitamin D3) 25 mcg (1,000 unit) tablet (Vitamin D3) 25 mcg PO DAILY Supplement 08/28/24
tiotropium bromide 2.5 mcg/actuation mist for inhalation (Spiriva Respimat) 2 inh inhalation R BID Lung/Breathing Issues 08/28/24
prednisone 10 mg tablet 30 mg (3 x 10 mg) PO DAILY 2 days #6 tabs 09/03/24
Home Medication Changes
prednisone 10 mg tablet 30 mg (3 x 10 mg) PO DAILY 2 days #6 tabs 09/03/24
Pending Results: No
--- NOTE | 2024-09-03 12:19 | W.PN.PUL3 ---
Today's Communication / Plan
-
Home oxygen assessment
Supportive care
Inhalers
Outpatient pulmonary follow-up
Patient understands I will need radiographic follow-up in the outpatient setting
Follow-up in 2 weeks in our office
Signed off
Assessment
-
69-year-old male with history of COPD, pneumonia, 120+ pack-year history of smoking quit presents with 1 week of increased shortness of breath, chest congestion found to be hypoxic requiring high flow oxygen. Imaging suggest extensive bilateral
pneumonia. We are asked to comment on pulmonary process
Acute hypoxic respiratory failure due to viral pneumonia (RVP panel positive for rhinovirus)
Bilateral pneumonia/pneumonitis
Bronchiolitis, basilar predominant
Chest congestion, cough, shortness of breath x 1 week
Leukocytosis
Mild pulm hypertension, PA pressure 45
Normal biventricular function, per echo 08/28/2024
Conditions present prior to admission
Hypertension/hyperlipidemia
125+ pack-year history of smoking, quit 2017
Family history of emphysema, son at age 58
Assessment and plan:
#1. Acute hypoxic respiratory failure with bilateral pneumonia.
- Hypoxia improving, patient off high flow now. Down to 3 L nasal cannula.
- Viral panel positive for rhinovirus
- Follow-up chest x-ray - 09/01, improving
- Afebrile now, cultures otherwise have stayed negative. Hemodynamically stable, not needing any pressors.
- Patient completed 5 days of azithromycin
- Negative procalcitonin 09/01/2024- discontinued ceftriaxone-remains afebrile.
. Home oxygen assessment-
#2. [id number] smoking history, with suspected underlying COPD.
- Continue Spiriva
- Continue albuterol as needed
- Continue prednisone 30 mg daily for 5 days and then discontinue
- Patient needs outpatient follow-up with pulmonary service with pulmonary function testing and 6-minute walk test etc.
#3. Mediastinal and hilar lymphadenopathy.
- Suspect this is reactive to current infection
- However other diseases including sarcoidosis, chronic granulomatous infections also in differential diagnosis.
- Patient will need follow-up imaging in 8 to 12 weeks as outpatient and if lymphadenopathy is persistent, might need EBUS-[id number]
#4. Mild pulmonary hypertension.
- Echocardiogram suggests pulmonary artery systolic pressure around 40-45. RV function is normal as well as RV size normal.
- Likely group 3 with underlying COPD
- Further workup as outpatient
- Continue O2 support to keep saturations above 90%
DVT prophylaxis: Enoxaparin
GI prophylaxis: Pepcid
No additional pulmonary recommendation. Needs radiographic follow-up and pulmonary follow-up. Follow-up with Dr. Meeks after DC
Sign off
Data
CT Chest 07/2024: Evaluation for pulmonary emboli limited because of respiratory artifact. No obvious discrete filling defects in the pulmonary arterial system to suggest pulmonary emboli.
Severe pulmonary parenchymal disease along with mediastinal and right hilar adenopathy. Most likely diagnosis is sarcoidosis. Lymphoma could give a similar constellation of findings. Other possibility is diffuse pneumonia with reactive mediastinal
and right hilar adenopathy. Consider treating for pneumonia and then performing a close follow-up chest CT for reevaluation.
20% compression fracture of T8 vertebral body. This is of uncertain age.
ECHO 07/2024: 1. Mild concentric left ventricular hypertrophy with preserved systolic
function, ejection fraction 60-65%
2. Normal mitral valve with normal left atrium
3. Mild aortic sclerosis without stenosis or regurgitation
4. Normal right heart with mild pulmonary hypertension, 40-45 mmHg systolic
Subjective Data
-
Date of Service:
Date of Service: September 03, 2024
Chief Complaint: Pulmonary Follow Up (Hypoxemic respiratory failure-pneumonia)
Subjective:
Clinically improved
Denies increased phlegm production
Denies wheezing
Denies shortness of breath
Remains on low rate supplemental oxygen
Review of Systems
Cardiopulmonary: Dyspnea ( improved) and Cough (Improved)
Objective Data
Data Reviewed
Vital Signs / I&O / Oxygen:
Vital Signs
Temp Pulse Resp BP Pulse Ox
97.6 F 83 18 124/79 92
09/03/24 11:05 09/03/24 11:05 09/03/24 11:05 09/03/24 11:05 09/03/24 11:05
Intake and Output
09/02/24 09/03/24 09/04/24
06:59 06:59 06:59
Intake Total 1080 / 1079 840 / 840
Output Total 1999 1475 / 1475
Balance -920 / -920 -635 / -635
SaO2 92
Nasal Cannula flow liters per 2
minute
Physical Exam
General: Comfortable
HEENT: Normocephalic
Cardiovascular: S1-S2
Respiratory: Wheeze (None), Crackles and Other (Good air movement)
GI: Soft and Non Distended
Neurology: Awake, Alert and Oriented
Skin: Warm
Labs/Micro/Reports
Lab Data
09/03/24 07:13
09/03/24 07:13
Microbiology
08/28/24 08:55 Blood/Venous Blood Culture - Final
No Growth - Final Report
08/28/24 08:46 Blood/Venous Blood Culture - Final
No Growth - Final Report
08/28/24 13:27 Sputum Respiratory Culture - Final
Usual Respiratory [place]
08/28/24 13:27 Sputum Gram Stain - Final
[2024-09-03] MEDS: METHOCARBAMOL PO (12:50)
--- NOTE | 2024-09-03 14:19 | CM ---
Pt cleared for discharge to home today. No need for home O2 per respiratory therapy evaluation today.
Plan: Discharge to home with no needs.
== END 2024-09-03 13:30 | disposition home or self-care (01) | DRG 871 ==
LOC: 3 WEST ACU 11:54
PROVIDERS: Internal Medicine Critical Care Medicine; Physician Assistant; ADMITTING PHYSICIAN Internal Medicine; ATTENDING PHYSICIAN Internal Medicine; CONSULT PHYSICIAN Internal Medicine Critical Care Medicine; EMERGENCY PHYSICIAN Student in an Organized Health Care Education/Training Program; FAMILY PHYSICIAN Family Medicine; OTHER PHYSICIAN Internal Medicine Infectious Disease
DX: A41.9 Sepsis, unspecified organism (principal); J12.89 Other viral pneumonia; J96.01 Acute respiratory failure with hypoxia; J15.4 Pneumonia due to other streptococci; J44.0 Chronic obstructive pulmonary disease with (acute) lower respiratory infection; J44.1 Chronic obstructive pulmonary disease with (acute) exacerbation; J21.9 Acute bronchiolitis, unspecified; B97.89 Other viral agents as the cause of diseases classified elsewhere; E78.5 Hyperlipidemia, unspecified; I10 Essential (primary) hypertension; Z87.891 Personal history of nicotine dependence; D86.9 Sarcoidosis, unspecified; E87.5 Hyperkalemia; T38.0X5A Adverse effect of glucocorticoids and synthetic analogues, initial encounter; Z79.82 Long term (current) use of aspirin; Z80.6 Family history of leukemia; Z82.5 Family history of asthma and other chronic lower respiratory diseases; Z87.01 Personal history of pneumonia (recurrent); M19.90 Unspecified osteoarthritis, unspecified site; Z11.52 Encounter for screening for COVID-19
CPT/HCPCS: 36600; 71045; 71275; 80048; 80053; 82805; 83605; 83735; 83880; 84100; 84145; 84484; 85025; 85610; 85730; 87040; 87070; 87205; 87449; 87502; 87633; 87811; 87899; 93005; 93306; 93970; 94640; 96365; 96375; 99285; Q9967

== ENCOUNTER → 2024-10-08 09:53 | Outpatient (REF) | payer BC, SELFPAY | LOC: RAD 09:53 | PROVIDERS: ATTENDING PHYSICIAN Nurse Practitioner Adult Health; FAMILY PHYSICIAN Family Medicine | DX: J12.89 Other viral pneumonia (principal); R59.9 Enlarged lymph nodes, unspecified | CPT/HCPCS: 71260; Q9967 ==

== ENCOUNTER → 2025-01-16 08:43 | Outpatient (REF) | payer BC, SELFPAY | LOC: HWRAD 08:43 | PROVIDERS: ATTENDING PHYSICIAN Surgery Vascular Surgery; FAMILY PHYSICIAN Family Medicine | DX: Z13.6 Encounter for screening for cardiovascular disorders (principal) | CPT/HCPCS: 76770 ==

== ENCOUNTER → 2025-01-19 06:46 | Outpatient (REF) | payer BC, SELFPAY | LOC: RAD 06:46 | PROVIDERS: ATTENDING PHYSICIAN Surgery Vascular Surgery; FAMILY PHYSICIAN Family Medicine | DX: I73.9 Peripheral vascular disease, unspecified (principal) | CPT/HCPCS: 93922 ==